=== PATIENT | female | born 1965 | race Caucasian/White ===

== ENCOUNTER 2017-05-13 05:03 | Emergency (ER) | payer MEDICAID, OTHER ==
[~2017-05-13] VITALS: Ht 182.9 cm; Wt 71.8 kg
[~2017-05-13 05:03] MED LIST: ACET325T21 PO; BENZ1TAB61 PO; LITH300C PO; LITH600C PO; OLAN10TA9 PO; TRAZ100T15 PO; ZIPR20VI IM
[2017-05-13 05:05] VITALS: BP 124/84
== END 2017-05-13 06:00 | disposition home or self-care (01) ==
LOC: ED 05:12
DX: S99.912A Unspecified injury of left ankle, initial encounter (principal); S99.911A Unspecified injury of right ankle, initial encounter; X58.XXXA Exposure to other specified factors, initial encounter; Y93.89 Activity, other specified; Y92.89 Other specified places as the place of occurrence of the external cause; Y99.8 Other external cause status
CPT/HCPCS: 99281

== ENCOUNTER 2018-08-26 17:24 | Emergency (ER) | payer OTHER ==
[~2018-08-26] VITALS: Ht 182.9 cm; Wt 90.9 kg
[~2018-08-26 17:24] MED LIST changes: +TRAZ-137 PO; -TRAZ100T15 PO
[2018-08-26 19:02] LABS: CULTURE INDICATED? YES; MICROSCOPIC INDICATED
[2018-08-26 19:04] LABS: BASOPHILS # (AUTO) 0.05 x10^3/uL (0-0.1); BASOPHILS % (AUTO) 1 % (0-1); EOSINOPHILS # (AUTO) 0.11 x10^3/uL (0-0.4); EOSINOPHILS % (AUTO) 1 % (1-7); LYMPHOCYTES # (AUTO) 2.43 x10^3/uL (1-3.4); LYMPHOCYTES % (AUTO) 32 % (22-44); MD NO; MEAN CORPUSCULAR HEMOGLOBIN 34.8 pg (27.0-34.8); MEAN CORPUSCULAR HGB CONC 34.6 g/dL (32.4-35.8); MEAN CORPUSCULAR VOLUME 100.6 fL (80-100); MEAN PLATELET VOLUME 7.8 fL (7.4-10.4); MONOCYTES # (AUTO) 0.42 x10^3/uL (0.2-0.8); MONOCYTES % (AUTO) 6 % (2-9); NEUTROPHILS # (AUTO) 4.52 x10^3/uL (1.8-6.8); NEUTROPHILS % (AUTO) 60 % (42-75); PLATELET COUNT 335 x10^3/uL (130-400); RED BLOOD COUNT 3.37 x10^6/uL (3.82-5.3); RED CELL DISTRIBUTION WIDTH 12.4 % (9.6-15.2)
[2018-08-26 19:13] LABS: ALBUMIN 3.1 g/dL (3.4-5.0); ANION GAP 7 mmol/L (5-15); CALCIUM 8.3 mg/dL (8.5-10.1); CHLORIDE 109 mmol/L (98-107)
[2018-08-26 19:15] LABS: ALANINE AMINOTRANSFERASE 15 U/L (12-78); ALKALINE PHOSPHATASE 86 U/L (45-117); BILIRUBIN,TOTAL 0.3 mg/dL (0.2-1.0); TOTAL PROTEIN 6.4 g/dL (6.4-8.2)
[2018-08-26] MEDS ORDERED: SODIUM CHLORIDE 0.9% 1,000ML IVBOLUS ONE ×2 (19:30→20:30)
[2018-08-26 21:31] LABS: AMPHETAMINE SCREEN, URINE Negative (Negative); BARBITURATE SCREEN, URINE Negative (Negative); BENZODIAZEPINE SCREEN, URINE Negative (Negative); CANNABINOID SCREEN, URINE Negative (Negative); COCAINE SCREEN, URINE Negative (Negative); METHADONE SCREEN, URINE Negative (Negative); OPIATE SCREEN, URINE Positive (Negative)
[2018-08-26 22:09] VITALS: BP 95/56
== END 2018-08-26 23:15 | disposition home or self-care (01) ==
LOC: ED 19:21
DX: S39.012A Strain of muscle, fascia and tendon of lower back, initial encounter (principal); E86.0 Dehydration; X58.XXXA Exposure to other specified factors, initial encounter; Y93.89 Activity, other specified; Y92.89 Other specified places as the place of occurrence of the external cause; Y99.8 Other external cause status
CPT/HCPCS: 36415; 72110; 80053; 80307; 81001; 83605; 85025; 87040; 87086; 99284; J7030

== ENCOUNTER 2018-10-26 20:45 | Observation (INO) | payer MEDICAID ==
[~2018-10-26] VITALS: Ht 185.4 cm; Wt 92.5 kg
--- NOTE | 2018-10-26 21:09 | NUR ---
PT C/O CHEST PAIN AND NOT FEELING WELL X 3 WEEKS. PT SEEN AT [facility]ARLI[facility] TODAY FOR SAME.
[2018-10-26 21:13] LABS: BASOPHILS # (AUTO) 0.09 x10^3/uL (0-0.1); BASOPHILS % (AUTO) 1 % (0-1); EOSINOPHILS # (AUTO) 0.14 x10^3/uL (0-0.4); EOSINOPHILS % (AUTO) 2 % (1-7); LYMPHOCYTES # (AUTO) 2.18 x10^3/uL (1-3.4); LYMPHOCYTES % (AUTO) 32 % (22-44); MD NO; MEAN CORPUSCULAR HEMOGLOBIN 34.5 pg (27.0-34.8); MEAN CORPUSCULAR HGB CONC 34.1 g/dL (32.4-35.8); MEAN CORPUSCULAR VOLUME 101.2 fL (80-100); MEAN PLATELET VOLUME 7.2 fL (7.4-10.4); MONOCYTES # (AUTO) 0.45 x10^3/uL (0.2-0.8); MONOCYTES % (AUTO) 7 % (2-9); NEUTROPHILS # (AUTO) 4.04 x10^3/uL (1.8-6.8); NEUTROPHILS % (AUTO) 59 % (42-75); PLATELET COUNT 353 x10^3/uL (130-400); RED BLOOD COUNT 3.85 x10^6/uL (3.82-5.3); RED CELL DISTRIBUTION WIDTH 14.4 % (9.6-15.2)
[2018-10-26 21:25] LABS: ANION GAP 3 mmol/L (5-15); CALCIUM 7.8 mg/dL (8.5-10.1); CHLORIDE 107 mmol/L (98-107); CREATININE 0.61 mg/dL (0.55-1.02)
[2018-10-26 21:29] LABS: TROPONIN I < 0.015 ng/mL (0.000-0.045)
[2018-10-26] MEDS ORDERED: NITROGLYCERIN SINGLE TAB 0.4 MG SL PRN (21:30)
[2018-10-26] MEDS ORDERED: ASPIRIN 81 MG TABLET CHEW PO ONE (21:30)
[2018-10-26] MEDS ORDERED: ASPIRIN 81 MG TABLET CHEW ONE (21:58)
[2018-10-26] MEDS ORDERED: NITROGLYCERIN SINGLE TAB 0.4 MG SL ONE (21:58)
--- NOTE | 2018-10-26 22:01 | NUR ---
PT CONT C/O CHEST PAIN. PT MEDIATED WITH ONE DOSE OF NITRO SUB LING.
--- NOTE | 2018-10-26 22:23 | NUR ---
PT REFUSING IV AFTER 2 ATTEMPTS.
[2018-10-26] MEDS ORDERED: SODIUM CHLORIDE 0.9% 1,000 ML IV SCH (23:12)
[2018-10-26] MEDS ORDERED: OMNIPAQUE 350 MG/ML, 100ML BOTTLE ONE (23:13)
[2018-10-26] MEDS ORDERED: NITROGLYCERIN 0.4 MG BOTTLE (25 TABS) SL PRN (23:30)
[2018-10-26] MEDS ORDERED: ONDANSETRON ODT 4 MG PO PRN (23:30)
[2018-10-26] MEDS ORDERED: PROMETHAZINE 25 MG/ML, 1ML IM PRN (23:30)
[2018-10-26] MEDS ORDERED: hydrALAzine 20 MG/ML, 1ML IVPush PRN (23:30)
[2018-10-26] MEDS ORDERED: ACETAMINOPHEN 325 MG TABLET PO PRN (23:30)
[2018-10-26] MEDS ORDERED: OXYcodone IR 5MG TABLET PO PRN (23:30)
[2018-10-26] MEDS ORDERED: GABAPENTIN 300 MG CAPSULE PO PRN (23:30)
[2018-10-26] MEDS ORDERED: DOCUSATE 100 MG CAPSULE PO PRN (23:30)
[2018-10-26] MEDS ORDERED: POLYETHYLENE GLYCOL 17 GM PACKET PO PRN (23:30)
[2018-10-26] MEDS ORDERED: LABETALOL 5MG/ML, 20ML IVPush PRN (23:30)
[2018-10-26] MEDS ORDERED: BISACODYL 10 MG SUPP PR PRN (23:30)
[2018-10-26] MEDS ORDERED: morphine SULFATE 10 MG/ML, 1ML IVPush PRN (23:30)
[2018-10-26] MEDS ORDERED: ONDANSETRON 2MG/ML, 2ML IVPush PRN (23:30)
[2018-10-27 00:07] LABS: FREE T4 (FREE THYROXINE) 1.36 ng/dL (0.76-1.46); THYROID STIMULATING HORMONE 0.362 mIU/L (0.358-3.740)
[2018-10-27 00:54] VITALS: BP 101/63
[2018-10-27] MEDS: HEPARIN 5,000 UNITS/ML, 1ML SQ SCH ×4 (00:57→23:53)
[2018-10-27] MEDS: FAMOTIDINE 20 MG/2 ML IVPush SCH ×2 (00:57→07:43)
[2018-10-27] MEDS: NICOTINE 7 MG/24 HR PATCH.TD24 TD SCH ×2 (00:57→23:53)
[2018-10-27] MEDS: ASPIRIN 325 MG TABLET EC PO SCH (05:39)
[2018-10-27 07:58] VITALS: BP 106/67
[2018-10-27] MEDS ORDERED: ERGOCALCIFEROL 50,000 UNIT CAPSULE PO SCH (08:30)
[2018-10-27 09:15] LABS: BASOPHILS # (AUTO) 0.03 x10^3/uL (0-0.1); BASOPHILS % (AUTO) 0 % (0-1); EOSINOPHILS # (AUTO) 0.14 x10^3/uL (0-0.4); EOSINOPHILS % (AUTO) 2 % (1-7); LYMPHOCYTES % (AUTO) 26 % (22-44); MD NO; MEAN CORPUSCULAR HEMOGLOBIN 34.2 pg (27.0-34.8); MEAN CORPUSCULAR HGB CONC 33.1 g/dL (32.4-35.8); MEAN CORPUSCULAR VOLUME 103.3 fL (80-100); MEAN PLATELET VOLUME 7.3 fL (7.4-10.4); MONOCYTES # (AUTO) 0.37 x10^3/uL (0.2-0.8); MONOCYTES % (AUTO) 6 % (2-9); NEUTROPHILS # (AUTO) 4.28 x10^3/uL (1.8-6.8); NEUTROPHILS % (AUTO) 66 % (42-75); PLATELET COUNT 334 x10^3/uL (130-400); RED BLOOD COUNT 3.89 x10^6/uL (3.82-5.3); RED CELL DISTRIBUTION WIDTH 14.3 % (9.6-15.2)
[2018-10-27 09:27] LABS: ALBUMIN 2.7 g/dL (3.4-5.0); ANION GAP 6 mmol/L (5-15); CALCIUM 7.7 mg/dL (8.5-10.1); CHLORIDE 113 mmol/L (98-107)
[2018-10-27 09:32] LABS: ALANINE AMINOTRANSFERASE 12 U/L (12-78); ALKALINE PHOSPHATASE 97 U/L (45-117); BILIRUBIN,TOTAL 0.3 mg/dL (0.2-1.0); CHOL/HDL RATIO 2.3; CHOLESTEROL, TOTAL 150 mg/dL (140-239); CREATININE 0.51 mg/dL (0.55-1.02); HDL CHOL % 43 % (28-40); HDL CHOLESTEROL (DIRECT) 64 mg/dL (40-60); LDL CHOLESTEROL,CALCULATED 76 mg/dL (54-169); LDL/HDL RATIO 1.2 (0.5-3.0); TOTAL PROTEIN 6.1 g/dL (6.4-8.2); TRIGLYCERIDES 50 mg/dL (50-200); TROPONIN I < 0.015 ng/mL (0.000-0.045); VLDL CHOLESTEROL 10 mg/dL (0-25)
[2018-10-27] MEDS ORDERED: REGADENOSON 0.4 MG/5 ML SYRINGE ONE (10:47)
[2018-10-27] MEDS ORDERED: LORazepam 2 MG/ML, 1ML ONE (11:34)
[2018-10-27] MEDS ORDERED: LORazepam 2 MG/ML, 1ML IVPush ONE (12:00)
[2018-10-27 13:50] VITALS: BP 110/72
[2018-10-27] MEDS ORDERED: ACET325T14 PO (14:18)
[2018-10-27] MEDS ORDERED: NICO-485 TD (14:18)
[2018-10-27] MEDS ORDERED: FAMO20TA7 PO (14:18)
[2018-10-27] MEDS ORDERED: ERGO500017 PO (14:18)
[2018-10-27 14:35] VITALS: BP 100/60
[2018-10-27] MEDS: FAMOTIDINE 20 MG TABLET PO SCH ×2 (15:40→22:45)
[2018-10-27] MEDS: SODIUM CHLORIDE 0.9% 1,000 ML IV SCH (15:40)
[2018-10-27 19:01] VITALS: BP 119/71
[2018-10-28] MEDS: SODIUM CHLORIDE 0.9% 1,000 ML IV SCH (01:13)
[2018-10-28 01:22] VITALS: BP 129/81
[2018-10-28] MEDS: ASPIRIN 325 MG TABLET EC PO SCH (05:30)
[2018-10-28] MEDS: HEPARIN 5,000 UNITS/ML, 1ML SQ SCH (07:30)
[2018-10-28 07:38] VITALS: BP 132/78
[2018-10-28 09:26] VITALS: BP 119/69
[2018-10-28] MEDS ORDERED: SODIUM CHLORIDE 0.9% 1,000ML IVBOLUS ONE (09:30)
[2018-10-28] MEDS: FAMOTIDINE 20 MG TABLET PO SCH (09:43)
== END 2018-10-28 13:25 | disposition home or self-care (01) ==
LOC: ED 21:11 → EDIP 22:01 → INTOOBSV 22:01 → UNDOADMOB 22:01 → 5SO 23:19 → EDIP 10-27 00:15 → 5SO 10-27 17:09 → DCLOUNGE 10-28 13:20
PROVIDERS: ADMIT Internal Medicine; ATTEND Internal Medicine
DX: R07.9 Chest pain, unspecified (principal); R00.0 Tachycardia, unspecified; R55 Syncope and collapse; D75.89 Other specified diseases of blood and blood-forming organs; E04.1 Nontoxic single thyroid nodule; E44.0 Moderate protein-calorie malnutrition; E55.9 Vitamin D deficiency, unspecified; E86.0 Dehydration; F10.10 Alcohol abuse, uncomplicated; F17.210 Nicotine dependence, cigarettes, uncomplicated; F20.0 Paranoid schizophrenia; F40.240 Claustrophobia; K44.9 Diaphragmatic hernia without obstruction or gangrene; Z87.11 Personal history of peptic ulcer disease; Z79.899 Other long term (current) drug therapy
CPT/HCPCS: 36415; 71045; 71275; 78452; 80048; 80053; 80061; 82040; 82306; 82607; 83036; 83735; 84439; 84443; 84484; 85025; 85379; 93005; 93017; 93306; 96360; 96361; 99284; A9502; C9898; G0378; J2785; J7030; Q9967

== ENCOUNTER 2018-10-28 20:39 | Emergency (ER) | payer MEDICAID ==
[~2018-10-28] VITALS: Ht 185.4 cm; Wt 91.0 kg
[~2018-10-28 20:39] MED LIST changes: +ACET325T14 PO; +ERGO500017 PO; +FAMO20TA7 PO; +NICO-485 TD
[2018-10-28 21:35] LABS: BASOPHILS # (AUTO) 0.03 x10^3/uL (0-0.1); BASOPHILS % (AUTO) 0 % (0-1); EOSINOPHILS % (AUTO) 1 % (1-7); LYMPHOCYTES % (AUTO) 22 % (22-44); MD NO; MEAN CORPUSCULAR HEMOGLOBIN 34.4 pg (27.0-34.8); MEAN CORPUSCULAR HGB CONC 33.7 g/dL (32.4-35.8); MEAN CORPUSCULAR VOLUME 102.2 fL (80-100); MEAN PLATELET VOLUME 7.3 fL (7.4-10.4); MONOCYTES # (AUTO) 0.43 x10^3/uL (0.2-0.8); MONOCYTES % (AUTO) 5 % (2-9); NEUTROPHILS # (AUTO) 6.28 x10^3/uL (1.8-6.8); NEUTROPHILS % (AUTO) 72 % (42-75); PLATELET COUNT 324 x10^3/uL (130-400); RED BLOOD COUNT 3.91 x10^6/uL (3.82-5.3)
[2018-10-28 21:43] LABS: ALANINE AMINOTRANSFERASE 15 U/L (12-78); ALBUMIN 3.1 g/dL (3.4-5.0); ANION GAP 8 mmol/L (5-15); CHLORIDE 112 mmol/L (98-107); CREATININE 0.62 mg/dL (0.55-1.02)
[2018-10-28 21:46] LABS: ALKALINE PHOSPHATASE 96 U/L (45-117); BILIRUBIN,TOTAL 0.1 mg/dL (0.2-1.0); TOTAL PROTEIN 6.9 g/dL (6.4-8.2)
--- NOTE | 2018-10-28 22:06 | NUR ---
PT REPORT TO SARA CASTAÑEDA. PT CARE TRANSFERRED.
[2018-10-28 22:25] VITALS: BP 114/64
[2018-10-28] MEDS ORDERED: MECLIZINE CHEWABLE 25 MG TAB ONE (22:30)
[2018-10-28] MEDS ORDERED: MECLIZINE CHEWABLE 25 MG TAB PO ONE (22:30)
--- NOTE | 2018-10-28 22:40 | NUR ---
PT MEDICATED FOR DIZZINESS. VSS. PT VERBALIZED UNDERSTANDING OF DISCHARGE AND FOLLOW UP. PT GIVEN CAB VOUCHER
== END 2018-10-28 22:53 | disposition home or self-care (01) ==
LOC: ED 22:18
DX: H61.21 Impacted cerumen, right ear (principal); R42 Dizziness and giddiness; F17.210 Nicotine dependence, cigarettes, uncomplicated; W18.30XA Fall on same level, unspecified, initial encounter; Y93.89 Activity, other specified; Y92.89 Other specified places as the place of occurrence of the external cause; Y99.8 Other external cause status
CPT/HCPCS: 36415; 80053; 85025; 99283

== ENCOUNTER 2018-10-30 08:08 | Emergency (ER) | payer MEDICAID ==
[~2018-10-30] VITALS: Ht 185.4 cm; Wt 99.5 kg
[2018-10-30 08:15] VITALS: BP 93/74
[2018-10-30] MEDS ORDERED: ALBUTEROL/IPRATROPIUM 2.5MG/0.5MG, 3 ML ONE (08:55)
[2018-10-30] MEDS ORDERED: ACETAMINOPHEN 500 MG TABLET ONE (08:58)
[2018-10-30] MEDS ORDERED: ACETAMINOPHEN 500 MG TABLET PO ONE (09:00)
[2018-10-30] MEDS ORDERED: ALBUTEROL/IPRATROPIUM 2.5MG/0.5MG, 3 ML NPPB ONE (09:00)
--- NOTE | 2018-10-30 09:00 | NUR ---
PT REQUESTING TIME TO SLEEP BEFORE WE REQUEST HER TO DC
--- NOTE | 2018-10-30 10:09 | NUR ---
AFTER REPEATED REQUESTES TO CONTINUE TO SLEEP THAT WERE DENIED PT ELOPED WO DC INSTRUCIONS
== END 2018-10-30 10:17 | disposition home or self-care (01) ==
LOC: ED 09:11
DX: J20.8 Acute bronchitis due to other specified organisms (principal)
CPT/HCPCS: 93005; 94640; 99283; J7620

== ENCOUNTER 2018-10-31 23:07 | Emergency (ER) | payer MEDICAID ==
[~2018-10-31] VITALS: Ht 185.4 cm; Wt 95.0 kg
[2018-10-31 23:12] VITALS: BP 108/66
[2018-10-31 23:54] LABS: BASOPHILS # (AUTO) 0.02 x10^3/uL (0-0.1); BASOPHILS % (AUTO) 0 % (0-1); EOSINOPHILS # (AUTO) 0.13 x10^3/uL (0-0.4); EOSINOPHILS % (AUTO) 3 % (1-7); LYMPHOCYTES # (AUTO) 1.63 x10^3/uL (1-3.4); LYMPHOCYTES % (AUTO) 30 % (22-44); MD NO; MEAN CORPUSCULAR HEMOGLOBIN 33.9 pg (27.0-34.8); MEAN CORPUSCULAR VOLUME 102.6 fL (80-100); MEAN PLATELET VOLUME 7.5 fL (7.4-10.4); MONOCYTES # (AUTO) 0.38 x10^3/uL (0.2-0.8); MONOCYTES % (AUTO) 7 % (2-9); NEUTROPHILS % (AUTO) 60 % (42-75); PLATELET COUNT 329 x10^3/uL (130-400); RED BLOOD COUNT 4.05 x10^6/uL (3.82-5.3); RED CELL DISTRIBUTION WIDTH 13.8 % (9.6-15.2)
[2018-11-01 00:01] LABS: ALBUMIN 3.3 g/dL (3.4-5.0); ANION GAP 5 mmol/L (5-15); CALCIUM 7.9 mg/dL (8.5-10.1); CHLORIDE 112 mmol/L (98-107); CREATININE 0.53 mg/dL (0.55-1.02)
[2018-11-01 00:04] LABS: TROPONIN I < 0.015 ng/mL (0.000-0.045)
[2018-11-01] MEDS ORDERED: BENZONATATE 100 MG CAPSULE PO ONE (01:00)
[2018-11-01] MEDS ORDERED: AZITHROMYCIN 500 MG TABLET PO ONE (01:00)
[2018-11-01] MEDS ORDERED: BENZONATATE 100 MG CAPSULE ONE (01:06)
[2018-11-01] MEDS ORDERED: AZITHROMYCIN 250 MG TABLET ONE (01:07)
== END 2018-11-01 01:29 | disposition home or self-care (01) ==
LOC: ED 23:55
DX: J06.9 Acute upper respiratory infection, unspecified (principal); R42 Dizziness and giddiness; F25.9 Schizoaffective disorder, unspecified
CPT/HCPCS: 36415; 80048; 82040; 84484; 85025; 99283

== ENCOUNTER 2018-11-01 03:31 | Emergency (ER) | payer MEDICAID ==
[~2018-11-01] VITALS: Ht 182.9 cm; Wt 96.0 kg
[2018-11-01 03:34] VITALS: BP 110/88
--- NOTE | 2018-11-01 03:53 | NUR ---
PT SEEN BY DR LEIVA AND DISCHARGED
== END 2018-11-01 03:54 | disposition home or self-care (01) ==
LOC: ED 03:52
DX: R00.2 Palpitations (principal); Z72.9 Problem related to lifestyle, unspecified; F25.9 Schizoaffective disorder, unspecified; F17.200 Nicotine dependence, unspecified, uncomplicated
CPT/HCPCS: 93005; 99283

== ENCOUNTER 2018-11-16 23:54 | Emergency (ER) | payer MEDICAID ==
[~2018-11-16] VITALS: Ht 185.4 cm; Wt 97.0 kg
[2018-11-17 00:14] VITALS: BP 92/50
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
--- NOTE | 2018-11-17 00:45 | NUR ---
PT REFUSING CT, NOTIFIED
[2018-11-17 00:47] LABS: BASOPHILS # (AUTO) 0.08 x10^3/uL (0-0.1); BASOPHILS % (AUTO) 1 % (0-1); EOSINOPHILS # (AUTO) 0.11 x10^3/uL (0-0.4); EOSINOPHILS % (AUTO) 1 % (1-7); LYMPHOCYTES # (AUTO) 2.63 x10^3/uL (1-3.4); LYMPHOCYTES % (AUTO) 32 % (22-44); MD NO; MEAN CORPUSCULAR HEMOGLOBIN 34.7 pg (27.0-34.8); MEAN CORPUSCULAR HGB CONC 34.8 g/dL (32.4-35.8); MEAN CORPUSCULAR VOLUME 99.9 fL (80-100); MEAN PLATELET VOLUME 7.5 fL (7.4-10.4); MONOCYTES # (AUTO) 0.43 x10^3/uL (0.2-0.8); MONOCYTES % (AUTO) 5 % (2-9); NEUTROPHILS # (AUTO) 4.99 x10^3/uL (1.8-6.8); NEUTROPHILS % (AUTO) 61 % (42-75); PLATELET COUNT 392 x10^3/uL (130-400); RED BLOOD COUNT 4.24 x10^6/uL (3.82-5.3); RED CELL DISTRIBUTION WIDTH 13.7 % (9.6-15.2)
[2018-11-17 00:57] LABS: ALBUMIN 3.5 g/dL (3.4-5.0); ANION GAP 7 mmol/L (5-15); CALCIUM 8.1 mg/dL (8.5-10.1); CHLORIDE 111 mmol/L (98-107); CREATININE 0.55 mg/dL (0.55-1.02)
--- NOTE | 2018-11-17 01:08 | NUR ---
PT REFUSED WOUND CLEANING. Addendum: 11/17/18 at 0112 by [email or web address] PT REFUSED WOUND CLEANING. RN NOTIFIED.
--- NOTE | 2018-11-17 01:24 | NUR ---
PT ALLOWED ME TO WIPE BLOOD OFF LIP AND APPLY BANDAID
--- NOTE | 2018-11-17 02:29 | NUR ---
Patient/Caregiver given discharge instructions and they have confirmed that they understand the instructions. Patient ambulatory with steady gait.
== END 2018-11-17 02:31 | disposition home or self-care (01) ==
LOC: ED 11-17 00:18
DX: S01.511A Laceration without foreign body of lip, initial encounter (principal); G40.419 Other generalized epilepsy and epileptic syndromes, intractable, without status epilepticus; F10.129 Alcohol abuse with intoxication, unspecified; F32.9 Major depressive disorder, single episode, unspecified; F20.9 Schizophrenia, unspecified; Z90.721 Acquired absence of ovaries, unilateral; Z90.722 Acquired absence of ovaries, bilateral; W19.XXXA Unspecified fall, initial encounter; Y93.89 Activity, other specified; Y92.89 Other specified places as the place of occurrence of the external cause; Y99.8 Other external cause status
CPT/HCPCS: 36415; 80048; 80307; 82040; 85025; 93005; 99284

== ENCOUNTER 2018-12-08 10:14 | Emergency (ER) | payer MEDICAID ==
[~2018-12-08] VITALS: Ht 172.7 cm; Wt 85.0 kg
--- NOTE | 2018-12-08 10:15 | NUR ---
PT IS REFUSING TO COOPERATE WITH HEALTHCARE TEAM. NO CHANGE TO GOWN. REFUSAL OF MED HX, AND WILL JOT VERBALIZE ANY COMPLAINTS.
--- NOTE | 2018-12-08 10:23 | NUR ---
MD IS AT THE BEDSIDE TO ASSESS.
[2018-12-08] MEDS ORDERED: LORazepam 1MG TABLET ONE (10:37)
[2018-12-08] MEDS ORDERED: LORazepam 1MG TABLET PO ONE (11:00)
[2018-12-08 11:23] VITALS: BP 147/82
== END 2018-12-08 11:25 | disposition home or self-care (01) ==
LOC: ED 10:57
DX: F25.9 Schizoaffective disorder, unspecified (principal); R21 Rash and other nonspecific skin eruption; F32.9 Major depressive disorder, single episode, unspecified; Z90.721 Acquired absence of ovaries, unilateral
CPT/HCPCS: 99283

== ENCOUNTER 2018-12-09 10:39 | Emergency (ER) | payer MEDICAID ==
[~2018-12-09] VITALS: Ht 172.7 cm; Wt 80.0 kg
[2018-12-09 10:51] VITALS: BP 122/73
--- NOTE | 2018-12-09 10:55 | NUR ---
PT PRESENTED TO ED D/T UNABLE TO AMBULATE. PT PRESENTED WITH A FLIGHT OF IDEAS.
--- NOTE | 2018-12-09 11:32 | NUR ---
OKAY BY RAUL TO DC PT. PT AMBULATED OUT OF ED WITH A STEADY GAIT.
== END 2018-12-09 11:33 | disposition home or self-care (01) ==
LOC: ED 11:27
DX: F20.1 Disorganized schizophrenia (principal); Z00.00 Encounter for general adult medical examination without abnormal findings; F32.9 Major depressive disorder, single episode, unspecified; Z90.722 Acquired absence of ovaries, bilateral
CPT/HCPCS: 99283

== ENCOUNTER 2018-12-10 18:16 | Emergency (ER) | payer MEDICAID ==
[~2018-12-10] VITALS: Ht 182.9 cm; Wt 97.8 kg
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
--- NOTE | 2018-12-10 18:34 | NUR ---
RECEIVED REPORT FROM SARA COONEY. PT REFUSING TO GIVE UA SAMPLE. PT RESTING ON GURNEY. NADN. SITTER AT BEDSIDE. ROOM REMAINS SECURE.
[2018-12-10] MEDS ORDERED: LORazepam 2 MG/ML, 1ML IM ONE (19:00)
--- NOTE | 2018-12-10 19:06 | NUR ---
REPORT RECEIVED FROM DAYSI RUIZ.
--- NOTE | 2018-12-10 19:06 | NUR ---
REPORT GIVEN TO REINALDO PARRY RN.
[2018-12-10 19:11] LABS: BASOPHILS # (AUTO) 0.04 x10^3/uL (0-0.1); BASOPHILS % (AUTO) 1 % (0-1); EOSINOPHILS # (AUTO) 0.09 x10^3/uL (0-0.4); EOSINOPHILS % (AUTO) 1 % (1-7); LYMPHOCYTES # (AUTO) 2.07 x10^3/uL (1-3.4); LYMPHOCYTES % (AUTO) 29 % (22-44); MD NO; MEAN CORPUSCULAR HEMOGLOBIN 33.8 pg (27.0-34.8); MEAN CORPUSCULAR HGB CONC 34.6 g/dL (32.4-35.8); MEAN CORPUSCULAR VOLUME 97.8 fL (80-100); MEAN PLATELET VOLUME 7.9 fL (7.4-10.4); MONOCYTES # (AUTO) 0.37 x10^3/uL (0.2-0.8); MONOCYTES % (AUTO) 5 % (2-9); NEUTROPHILS # (AUTO) 4.71 x10^3/uL (1.8-6.8); NEUTROPHILS % (AUTO) 65 % (42-75); PLATELET COUNT 381 x10^3/uL (130-400); RED BLOOD COUNT 4.34 x10^6/uL (3.82-5.3); RED CELL DISTRIBUTION WIDTH 13.1 % (9.6-15.2)
[2018-12-10 19:17] LABS: ALANINE AMINOTRANSFERASE 24 U/L (12-78); ALBUMIN 3.3 g/dL (3.4-5.0); ANION GAP 9 mmol/L (5-15); CALCIUM 8.7 mg/dL (8.5-10.1); CHLORIDE 108 mmol/L (98-107); CREATININE 0.51 mg/dL (0.55-1.02); SALICYLATE LEVEL 2.9 mg/dL (2.8-20.0)
[2018-12-10 19:21] LABS: ALKALINE PHOSPHATASE 109 U/L (45-117); BILIRUBIN,TOTAL 0.4 mg/dL (0.2-1.0); TOTAL PROTEIN 6.8 g/dL (6.4-8.2)
[2018-12-10 19:22] LABS: ACETAMINOPHEN < 2 mcg/mL (10-30)
[2018-12-10] MEDS ORDERED: LORazepam 2 MG/ML, 1ML ONE (20:14)
--- NOTE | 2018-12-10 20:23 | NUR ---
PT MEDICATED PER EMAR. PT TOLERTAED WELL.
--- NOTE | 2018-12-10 20:23 | NUR ---
PT PROVIDED DINNER. PT EATING DINNER AT THIS TIME. SITTER MONITORING FROM [facility] FOR SAFETY. ROOM REMAINS SECURE.
[2018-12-10] MEDS ORDERED: MAGNESIUM OXIDE 400 MG TABLET PO ONE (20:30)
[2018-12-10] MEDS ORDERED: POTASSIUM CHLORIDE 20 MEQ TAB.ER.PRT PO ONE (20:30)
[2018-12-10] MEDS ORDERED: MAGNESIUM OXIDE 400 MG TABLET ONE (20:31)
[2018-12-10] MEDS ORDERED: POTASSIUM CHLORIDE 20 MEQ TAB.ER.PRT ONE (20:31)
--- NOTE | 2018-12-10 20:40 | NUR ---
PT PROVIDED URINE SAMPLE. UA SENT.
[2018-12-10 20:46] LABS: CULTURE INDICATED? YES; MICROSCOPIC INDICATED
[2018-12-10 20:50] LABS: AMPHETAMINE SCREEN, URINE Negative (Negative); BARBITURATE SCREEN, URINE Negative (Negative); BENZODIAZEPINE SCREEN, URINE Negative (Negative); CANNABINOID SCREEN, URINE Negative (Negative); COCAINE SCREEN, URINE Negative (Negative); METHADONE SCREEN, URINE Negative (Negative); OPIATE SCREEN, URINE Negative (Negative)
--- NOTE | 2018-12-10 20:55 | NUR ---
PT MEDICATED PER EMAR. PT TOLERATED WELL.
[2018-12-10] MEDS ORDERED: CEFDINIR 300 MG CAPSULE ONE (21:28)
[2018-12-10] MEDS ORDERED: CEFDINIR 300 MG CAPSULE PO ONE (21:30)
--- NOTE | 2018-12-10 21:35 | NUR ---
PT MEDICATED PER EMAR. PT TOLERATED WELL. ROOM REMAINS SECURE.
[2018-12-10 21:36] VITALS: BP 96/59
--- NOTE | 2018-12-10 21:55 | NUR ---
PT GIVEN DC INSTRUCTIONS AND SCRIPT. PT EDUCATED REGARDING DC MEDICATION. PT WHEELED TO DC. PT'S AOX4. RESPS EVEN AND UNLABORED. NO ACUTE DISTRESS AT DC.
== END 2018-12-10 22:11 | disposition home or self-care (01) ==
LOC: ED 21:28
DX: F25.9 Schizoaffective disorder, unspecified (principal); E87.6 Hypokalemia; N30.00 Acute cystitis without hematuria; E83.42 Hypomagnesemia; F32.9 Major depressive disorder, single episode, unspecified; Z72.9 Problem related to lifestyle, unspecified
CPT/HCPCS: 36415; 80053; 80307; 80329; 81001; 83735; 85025; 87077; 87086; 87186; 96372; 99284; J2060; G0480

== ENCOUNTER 2018-12-11 13:10 | Inpatient (IN) | payer MEDICAID ==
[~2018-12-11] VITALS: Ht 172.7 cm; Wt 90.8 kg
[2018-12-11 13:59] LABS: BASOPHILS # (AUTO) 0.03 x10^3/uL (0-0.1); BASOPHILS % (AUTO) 0 % (0-1); EOSINOPHILS # (AUTO) 0.04 x10^3/uL (0-0.4); EOSINOPHILS % (AUTO) 0 % (1-7); LYMPHOCYTES # (AUTO) 1.94 x10^3/uL (1-3.4); LYMPHOCYTES % (AUTO) 23 % (22-44); MD NO; MEAN CORPUSCULAR HEMOGLOBIN 33.7 pg (27.0-34.8); MEAN CORPUSCULAR HGB CONC 34.4 g/dL (32.4-35.8); MEAN PLATELET VOLUME 8.1 fL (7.4-10.4); MONOCYTES # (AUTO) 0.37 x10^3/uL (0.2-0.8); MONOCYTES % (AUTO) 4 % (2-9); NEUTROPHILS # (AUTO) 6.12 x10^3/uL (1.8-6.8); NEUTROPHILS % (AUTO) 72 % (42-75); PLATELET COUNT 401 x10^3/uL (130-400); RED BLOOD COUNT 4.33 x10^6/uL (3.82-5.3); RED CELL DISTRIBUTION WIDTH 13.2 % (9.6-15.2)
[2018-12-11 14:09] LABS: ALBUMIN 3.6 g/dL (3.4-5.0); ANION GAP 9 mmol/L (5-15); CALCIUM 8.9 mg/dL (8.5-10.1); CHLORIDE 110 mmol/L (98-107); CREATININE 0.53 mg/dL (0.55-1.02)
[2018-12-11 14:10] LABS: ACETAMINOPHEN < 2 mcg/mL (10-30); SALICYLATE LEVEL 3.2 mg/dL (2.8-20.0)
--- NOTE | 2018-12-11 14:55 | NUR ---
PT REFUSING TO CHANGE INTO GOWN, ROOM SECURED. SITTER MONITORING FROM [facility] FOR SAFETY
--- NOTE | 2018-12-11 15:11 | NUR ---
PT NOW IN GOWN. ROOM SECURED. DISCUSSED POC WITH PT BUT REQUIRES REINFORCEMENT.
--- NOTE | 2018-12-11 15:31 | NUR ---
[facility] TO EVALUATE
--- NOTE | 2018-12-11 15:49 | NUR ---
[facility] TO BEDSIDE. ASSESSMENT IN PROGRESS
--- NOTE | 2018-12-11 16:27 | NUR ---
PT RECEIVED MEAL TRAY. NO ACUTE DISTRESS. PT LEGAL HOLD IN PLACE BY ANGELINA FROM [facility]. PT WITHDRAWN AND UNCOOPERATIVE, DOES NOT RESPOND WELL TO REASSURANCE
--- NOTE | 2018-12-11 16:29 | NUR ---
PT DENIES ABILITY TO PRODUCE UA AT THIS TIME
--- NOTE | 2018-12-11 17:04 | NUR ---
[facility], [facility] AND [facility]
--- NOTE | 2018-12-11 17:26 | NUR ---
PT MOVED TO HOSPITAL BED. ALL PERSONAL CLOTHING NOW REMOVED AND SECURED. PT IN HOSPITAL GOWN AND BED BATH PROVIDED. PT DENIES FURTHER NEEDS AT THIS TIME. SITTER MONITORING FROM [facility] FOR SAFETY. PT DENIES ABILITY TO PRODUCE UA AT THIS TIME
--- NOTE | 2018-12-11 18:00 | NUR ---
CESAR FROM [facility] CALLED. THEY ARE LOOKING AT ACCEPTING PT BUT CONCERNED ABOUT ELEVATED HR. ANTONY AWARE AND HAS SPOKEN TO DR. OCHOA.
--- NOTE | 2018-12-11 18:29 | NUR ---
SPOKE WITH GENE FROM [facility]. IF [facility] DOES NOT ACCEPT [facility] WILL EVALUATE. HR WILL ASLO BE A CONCERN WITH THEM
[2018-12-11] MEDS ORDERED: SODIUM CHLORIDE FLUSH 10ML SYR IVF ONE (18:30)
[2018-12-11] MEDS ORDERED: SODIUM CHLORIDE 0.9% 1,000ML IVBOLUS ONE ×2 (18:30→20:30)
[2018-12-11 18:38] LABS: FREE T4 (FREE THYROXINE) 1.61 ng/dL (0.76-1.46); THYROID STIMULATING HORMONE 0.934 mIU/L (0.358-3.740)
--- NOTE | 2018-12-11 18:44 | NUR ---
CALL PLACED TO CESAR AT [facility] [phone]. AWAITING RETURN CALL
[2018-12-11] MEDS ORDERED: LORazepam 2 MG/ML, 1ML ONE (18:59)
[2018-12-11] MEDS ORDERED: LORazepam 2 MG/ML, 1ML IVPush PRN (19:00)
--- NOTE | 2018-12-11 19:12 | NUR ---
ASSUMED CARE OF PATIENT. PATIENT REQUESTING FOOD. PT GIVEN DINNER. PT IS ANXIOUS. SPOKE WITH SARA GUERRERO AT [facility]. PT IS ACCEPTED. WILLCALL BACK ONCE PATIENT HAS EATEN AND IS FEELING MORE CALM. SITTER AT DOOR. WILL CONTINUE TO MONITOR.
--- NOTE | 2018-12-11 19:44 | NUR ---
PT REQUESTING MORE FOOD. PT GIVEN FOOD
--- NOTE | 2018-12-11 19:48 | NUR ---
DR OCHOA AWARE OF VS SITTER AT DOOR PT CALM WILL CONTINUE TO MONITOR.
[2018-12-11] MEDS ORDERED: HALOPERIDOL 5 MG/ML IM ONE (21:00)
[2018-12-11] MEDS ORDERED: HALOPERIDOL 5 MG/ML ONE (21:10)
[2018-12-11] MEDS ORDERED: CEFTRIAXONE PMX 1GM/50ML 50 ML IVPB ONE (21:30)
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
[2018-12-11 21:43] LABS: MICROSCOPIC INDICATED
[2018-12-11 21:44] LABS: CULTURE INDICATED? YES
--- NOTE | 2018-12-11 21:44 | NUR ---
SPOKE WITH DR OCHOA NO BLOOD CULTURES NEEDED
[2018-12-11] MEDS ORDERED: CEFTRIAXONE PMX 1GM/50ML 50 ML ONE (21:45)
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
[2018-12-11 22:04] LABS: AMPHETAMINE SCREEN, URINE Negative (Negative); BARBITURATE SCREEN, URINE Negative (Negative); BENZODIAZEPINE SCREEN, URINE Negative (Negative); CANNABINOID SCREEN, URINE Negative (Negative); COCAINE SCREEN, URINE Negative (Negative); METHADONE SCREEN, URINE Negative (Negative); OPIATE SCREEN, URINE Negative (Negative)
[2018-12-11] MEDS ORDERED: SODIUM CHLORIDE FLUSH 10ML SYR IVF PRN (22:30)
[2018-12-11] MEDS ORDERED: ACETAMINOPHEN 325 MG TABLET PO PRN (23:00)
[2018-12-11] MEDS ORDERED: BISACODYL 10 MG SUPP PR PRN (23:00)
[2018-12-11] MEDS ORDERED: CEFTRIAXONE PMX 1GM/50ML 50 ML IV SCH (23:00)
[2018-12-11] MEDS ORDERED: POLYETHYLENE GLYCOL 17 GM PACKET PO PRN (23:00)
[2018-12-11] MEDS ORDERED: ONDANSETRON ODT 4 MG PO PRN (23:00)
[2018-12-11] MEDS: NS + 20MEQ KCL 1,000 ML IV SCH (23:54)
[2018-12-11] MEDS: HEPARIN 5,000 UNITS/ML, 1ML SQ SCH (23:56)
[2018-12-12 00:22] VITALS: BP 86/54
[2018-12-12 05:04] LABS: BASOPHILS # (AUTO) 0.04 x10^3/uL (0-0.1); BASOPHILS % (AUTO) 1 % (0-1); EOSINOPHILS # (AUTO) 0.12 x10^3/uL (0-0.4); EOSINOPHILS % (AUTO) 2 % (1-7); LYMPHOCYTES # (AUTO) 2.55 x10^3/uL (1-3.4); LYMPHOCYTES % (AUTO) 42 % (22-44); MD NO; MEAN CORPUSCULAR HEMOGLOBIN 33.6 pg (27.0-34.8); MEAN CORPUSCULAR HGB CONC 34.2 g/dL (32.4-35.8); MEAN CORPUSCULAR VOLUME 98.3 fL (80-100); MEAN PLATELET VOLUME 7.9 fL (7.4-10.4); MONOCYTES # (AUTO) 0.41 x10^3/uL (0.2-0.8); MONOCYTES % (AUTO) 7 % (2-9); NEUTROPHILS # (AUTO) 2.98 x10^3/uL (1.8-6.8); NEUTROPHILS % (AUTO) 49 % (42-75); PLATELET COUNT 334 x10^3/uL (130-400); RED BLOOD COUNT 3.78 x10^6/uL (3.82-5.3); RED CELL DISTRIBUTION WIDTH 13.3 % (9.6-15.2)
[2018-12-12 05:09] LABS: ALANINE AMINOTRANSFERASE 22 U/L (12-78); ALBUMIN 2.8 g/dL (3.4-5.0); ANION GAP 2 mmol/L (5-15); CALCIUM 7.7 mg/dL (8.5-10.1); CHLORIDE 115 mmol/L (98-107)
[2018-12-12 05:12] LABS: ALKALINE PHOSPHATASE 94 U/L (45-117); BILIRUBIN,TOTAL 0.2 mg/dL (0.2-1.0); CREATININE 0.56 mg/dL (0.55-1.02); TOTAL PROTEIN 5.8 g/dL (6.4-8.2)
[2018-12-12] MEDS: HEPARIN 5,000 UNITS/ML, 1ML SQ SCH ×3 (07:00→23:15)
[2018-12-12] MEDS: SENNA/DOCUSATE TABLET PO SCH (08:35)
[2018-12-12] MEDS: NS + 20MEQ KCL 1,000 ML IV SCH (08:35)
[2018-12-12] MEDS: ERTAPENEM 1 GM in SODIUM CHLORIDE 0.9% 50 ML IV SCH (15:41)
[2018-12-13 07:59] VITALS: BP 107/70
[2018-12-13] MEDS: SENNA/DOCUSATE TABLET PO SCH (09:06)
[2018-12-13] MEDS: HEPARIN 5,000 UNITS/ML, 1ML SQ SCH ×3 (09:06→23:00)
[2018-12-13] MEDS ORDERED: LORazepam 2 MG/ML, 1ML IVPush ONE (12:00)
[2018-12-13] MEDS: ERTAPENEM 1 GM in SODIUM CHLORIDE 0.9% 50 ML IV SCH (14:39)
[2018-12-13 15:08] VITALS: BP 123/86
[2018-12-13] MEDS ORDERED: OLANZAPINE 10 MG INJ IM PRN (16:30)
[2018-12-13] MEDS: OLANZAPINE 5 MG TABLET PO SCH ×2 (17:12→20:14)
[2018-12-13] MEDS: LORazepam 2 MG/ML, 1ML IVPush PRN (17:12)
[2018-12-13 19:23] VITALS: BP 120/72
[2018-12-14 01:53] VITALS: BP 110/71
[2018-12-14] MEDS: HEPARIN 5,000 UNITS/ML, 1ML SQ SCH (06:28)
[2018-12-14] MEDS: SENNA/DOCUSATE TABLET PO SCH (08:39)
[2018-12-14] MEDS: OLANZAPINE 5 MG TABLET PO SCH ×2 (08:39→22:05)
[2018-12-14] MEDS: LORazepam 2 MG/ML, 1ML IVPush PRN ×2 (08:56→18:09)
[2018-12-14 12:09] VITALS: BP 107/71
[2018-12-14] MEDS: ERTAPENEM 1 GM in SODIUM CHLORIDE 0.9% 50 ML IV SCH (15:31)
[2018-12-14 19:42] VITALS: BP 128/79
[2018-12-15] MEDS: LORazepam 2 MG/ML, 1ML IVPush PRN ×2 (05:15→15:30)
[2018-12-15 08:09] VITALS: BP 104/71
[2018-12-15] MEDS: SENNA/DOCUSATE TABLET PO SCH (09:00)
[2018-12-15] MEDS: OLANZAPINE 5 MG TABLET PO SCH ×2 (09:35→21:41)
[2018-12-15 14:00] VITALS: BP 122/86
[2018-12-15] MEDS ORDERED: OLANZAPINE 10 MG INJ IM PRN (15:30)
[2018-12-15] MEDS: ERTAPENEM 1 GM in SODIUM CHLORIDE 0.9% 50 ML IV SCH (15:30)
[2018-12-16] MEDS: OLANZAPINE 5 MG TABLET PO SCH ×2 (09:00→20:03)
[2018-12-16] MEDS: SENNA/DOCUSATE TABLET PO SCH (09:00)
[2018-12-16] MEDS: ERTAPENEM 1 GM in SODIUM CHLORIDE 0.9% 50 ML IV SCH (15:46)
[2018-12-17] MEDS: SENNA/DOCUSATE TABLET PO SCH (09:00)
[2018-12-17 09:54] VITALS: BP 116/78
[2018-12-17] MEDS: OLANZAPINE 5 MG TABLET PO SCH ×3 (11:28→22:35)
[2018-12-17] MEDS: LORazepam 2 MG/ML, 1ML IVPush PRN (14:26)
[2018-12-17] MEDS: ERTAPENEM 1 GM in SODIUM CHLORIDE 0.9% 50 ML IV SCH (14:26)
[2018-12-17 14:42] VITALS: BP 121/87
[2018-12-18] MEDS: SENNA/DOCUSATE TABLET PO SCH (09:00)
[2018-12-18] MEDS: OLANZAPINE 5 MG TABLET PO SCH ×3 (09:37→21:16)
[2018-12-18] MEDS: LORazepam 2 MG/ML, 1ML IVPush PRN (09:42)
[2018-12-18] MEDS: ERTAPENEM 1 GM in SODIUM CHLORIDE 0.9% 50 ML IV SCH (15:32)
[2018-12-18 19:42] VITALS: BP 117/71
[2018-12-19] MEDS: OLANZAPINE 5 MG TABLET PO SCH ×3 (09:00→20:03)
[2018-12-19] MEDS: SENNA/DOCUSATE TABLET PO SCH (09:00)
[2018-12-19] MEDS: LORazepam 2 MG/ML, 1ML IVPush PRN (16:01)
[2018-12-19] MEDS: ERTAPENEM 1 GM in SODIUM CHLORIDE 0.9% 50 ML IV SCH (16:03)
[2018-12-20] MEDS: OLANZAPINE 5 MG TABLET PO SCH ×3 (07:53→17:31)
[2018-12-20] MEDS: SENNA/DOCUSATE TABLET PO SCH (07:53)
[2018-12-20 09:31] VITALS: BP 108/75
[2018-12-20] MEDS: LORazepam 2 MG/ML, 1ML IVPush PRN (09:44)
[2018-12-20] MEDS: ERTAPENEM 1 GM in SODIUM CHLORIDE 0.9% 50 ML IV SCH (15:57)
[2018-12-20 19:25] VITALS: BP 119/64
[2018-12-21 06:53] VITALS: BP 101/58
[2018-12-21] MEDS: OLANZAPINE 5 MG TABLET PO SCH ×3 (07:37→20:36)
[2018-12-21] MEDS: LORazepam 2 MG/ML, 1ML IVPush PRN ×2 (07:43→16:47)
[2018-12-21] MEDS: SENNA/DOCUSATE TABLET PO SCH (09:00)
[2018-12-21 12:33] VITALS: BP 119/78
[2018-12-21] MEDS ORDERED: OLANZAPINE 10 MG INJ IM ONE (15:30)
[2018-12-21 20:23] VITALS: BP 117/68
[2018-12-22] MEDS: SENNA/DOCUSATE TABLET PO SCH (08:21)
[2018-12-22] MEDS: OLANZAPINE 5 MG TABLET PO SCH ×3 (08:21→20:38)
[2018-12-22] MEDS: LORazepam 2 MG/ML, 1ML IVPush PRN ×2 (09:43→16:44)
== END 2018-12-22 22:00 | DRG 189 ==
LOC: ED 13:25 → EDIP 22:16 → 4WST 23:28 → 3NE 12-15 05:43
PROVIDERS: ADMIT Internal Medicine; ATTEND Internal Medicine
PROC: 0T9B70Z Drainage of Bladder with Drainage Device, Via Natural or Artificial Opening (ICD-10-PCS; principal; 2018-12-11)
DX: J96.00 Acute respiratory failure, unspecified whether with hypoxia or hypercapnia (principal); E44.0 Moderate protein-calorie malnutrition; F20.1 Disorganized schizophrenia; N30.00 Acute cystitis without hematuria; D69.6 Thrombocytopenia, unspecified; Z16.12 Extended spectrum beta lactamase (ESBL) resistance; E87.6 Hypokalemia; Z87.11 Personal history of peptic ulcer disease; Z91.14 Patient's other noncompliance with medication regimen; Z68.30 Body mass index [BMI] 30.0-30.9, adult
CPT/HCPCS: 36415; 80048; 80053; 80307; 80329; 81001; 82040; 83735; 84439; 84443; 85025; 87077; 87086; 87184; 87186; 96361; 96365; 96372; 96375; G0378; J0696; J1335; J3480; G0480; J1630; J2060; J7030

== ENCOUNTER 2019-02-15 09:32 | Emergency (ER) | payer MEDICAID ==
[~2019-02-15] VITALS: Ht 182.9 cm; Wt 93.9 kg
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
[2019-02-15 10:05] LABS: BASOPHILS % (AUTO) 0 % (0-1); EOSINOPHILS # (AUTO) 0.04 x10^3/uL (0-0.4); EOSINOPHILS % (AUTO) 1 % (1-7); LYMPHOCYTES # (AUTO) 0.99 x10^3/uL (1-3.4); LYMPHOCYTES % (AUTO) 10 % (22-44); MD NO; MEAN CORPUSCULAR HEMOGLOBIN 33.2 pg (27.0-34.8); MEAN CORPUSCULAR HGB CONC 33.3 g/dL (32.4-35.8); MEAN CORPUSCULAR VOLUME 99.5 fL (80-100); MEAN PLATELET VOLUME 6.7 fL (7.4-10.4); MONOCYTES # (AUTO) 0.23 x10^3/uL (0.2-0.8); MONOCYTES % (AUTO) 2 % (2-9); NEUTROPHILS # (AUTO) 8.29 x10^3/uL (1.8-6.8); NEUTROPHILS % (AUTO) 87 % (42-75); PLATELET COUNT 341 x10^3/uL (130-400); RED CELL DISTRIBUTION WIDTH 14.5 % (9.6-15.2)
[2019-02-15 10:29] LABS: ALANINE AMINOTRANSFERASE 20 U/L (12-78); ALBUMIN 3.5 g/dL (3.4-5.0); ANION GAP 11 mmol/L (5-15); CALCIUM 8.4 mg/dL (8.5-10.1); CHLORIDE 107 mmol/L (98-107); SALICYLATE LEVEL 5.4 mg/dL (2.8-20.0)
[2019-02-15 10:31] LABS: ALKALINE PHOSPHATASE 141 U/L (45-117); BILIRUBIN,TOTAL 0.8 mg/dL (0.2-1.0); CREATININE 0.38 mg/dL (0.55-1.02); TOTAL PROTEIN 7.5 g/dL (6.4-8.2)
--- NOTE | 2019-02-15 11:22 | NUR ---
PT TRANSFERED TO PELVIC GURNEY. ROOM PREPPED FOR EXAM.
--- NOTE | 2019-02-15 12:24 | NUR ---
PT RESTING IN BED, NAD. NO NEEDS AT THIS TIME. WILL CONTINUE TO MONITOR
--- NOTE | 2019-02-15 12:27 | NUR ---
LATE ENTRY 1135- PT REFUSED INTERNAL PELVIC EXAM
[2019-02-15 12:45] LABS: AMPHETAMINE SCREEN, URINE Positive (Negative); BARBITURATE SCREEN, URINE Negative (Negative); BENZODIAZEPINE SCREEN, URINE Negative (Negative); CANNABINOID SCREEN, URINE Negative (Negative); COCAINE SCREEN, URINE Negative (Negative); METHADONE SCREEN, URINE Negative (Negative); OPIATE SCREEN, URINE Negative (Negative)
--- NOTE | 2019-02-15 13:39 | NUR ---
PT RESTING ON BILLY WHEAT NOTED. VSS
[2019-02-15 14:15] LABS: MICROSCOPIC INDICATED
[2019-02-15 14:16] LABS: CULTURE INDICATED? YES
--- NOTE | 2019-02-15 14:24 | NUR ---
TECH AMBULATED PATIENT; PT STATED "I DON'T FEEL WELL I CANT WALK," WHILE AMBULATING WITH STEADY GAIT.
[2019-02-15] MEDS ORDERED: FOSFOMYCIN 3 GM PACKET PO ONE (14:30)
[2019-02-15 15:26] VITALS: BP 110/71
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
== END 2019-02-15 16:23 | disposition home or self-care (01) ==
LOC: ED 11:28
DX: F25.8 Other schizoaffective disorders (principal); F15.151 Other stimulant abuse with stimulant-induced psychotic disorder with hallucinations; R00.0 Tachycardia, unspecified; F17.200 Nicotine dependence, unspecified, uncomplicated
CPT/HCPCS: 36415; 80053; 80307; 81001; 85025; 87077; 87086; 87186; 99284

== ENCOUNTER 2019-02-24 17:18 | Emergency (ER) | payer MEDICAID ==
--- NOTE | 2019-02-24 17:37 | NUR ---
PT REFUSING PHYSICAL ASSESSMENT AT THIS TIME. PT PLACED IN BED, VITALS OBTAINED. SITTER AT DOOR, SAFETY ENSURED. PT ON LEGAL HOLD. SW ADVISED OF HOLD STATUS. PT SLEEPING IN BED. INCOMPREHENSIBLY SPEAKING WHEN ADDRESSED. PT APPEARS ANGER AT THIS TIME. WILL CONTINUE TO MONITOR.
--- NOTE | 2019-02-24 17:40 | NUR ---
PT OFFERED SHOWER AND ADAMANTLY REFUSING. PT YELLED TO "LEAVE ME ALONE"
[2019-02-24 18:07] LABS: BASOPHILS # (AUTO) 0.04 x10^3/uL (0-0.1); BASOPHILS % (AUTO) 1 % (0-1); EOSINOPHILS # (AUTO) 0.06 x10^3/uL (0-0.4); EOSINOPHILS % (AUTO) 1 % (1-7); LYMPHOCYTES % (AUTO) 29 % (22-44); MD NO; MEAN CORPUSCULAR HEMOGLOBIN 33.8 pg (27.0-34.8); MEAN CORPUSCULAR HGB CONC 32.9 g/dL (32.4-35.8); MEAN CORPUSCULAR VOLUME 102.8 fL (80-100); MONOCYTES % (AUTO) 6 % (2-9); NEUTROPHILS # (AUTO) 5.96 x10^3/uL (1.8-6.8); NEUTROPHILS % (AUTO) 64 % (42-75); PLATELET COUNT 397 x10^3/uL (130-400); RED BLOOD COUNT 3.87 x10^6/uL (3.82-5.3)
--- NOTE | 2019-02-24 18:07 | NUR ---
REPORT FROM ADRIENNE RUIZ, PT MOVED TO ROOM 38.
[2019-02-24 18:14] LABS: ALBUMIN 2.9 g/dL (3.4-5.0); ANION GAP 10 mmol/L (5-15); CALCIUM 8.2 mg/dL (8.5-10.1); CHLORIDE 103 mmol/L (98-107)
[2019-02-24 18:17] LABS: ALANINE AMINOTRANSFERASE 29 U/L (12-78); ALKALINE PHOSPHATASE 110 U/L (45-117); BILIRUBIN,TOTAL 0.5 mg/dL (0.2-1.0); CREATININE 0.54 mg/dL (0.55-1.02); TOTAL PROTEIN 6.5 g/dL (6.4-8.2)
--- NOTE | 2019-02-24 19:28 | NUR ---
PT MAKING DEMANDS FOR FOOD AND TO HAVE DOOR OPEN. SANDWICH OFFERED ONCE URINE SPECIMEN OBTAINED. PT URINATED ON FLOOR, BOUNDARIES REINFORCED, BSC PLACED IN ROOM D/T LARGE AMOUNT OF FECAL MATTER ON PT AND PT REFUSING SHOWER OR TO BE CLEANED UP. PT ABLE TO PROVIDE SPECIMEN/SENT TO LAB. TURKEY SANDWICH PROVIDED PER PT REQUEST AND DOOR CLOSED. SITTER AT HALLWAY.
--- NOTE | 2019-02-24 19:31 | NUR ---
[facility] called for assessment
--- NOTE | 2019-02-24 19:37 | NUR ---
Cheryl from [facility] called for initial assessment.
[2019-02-24 19:56] LABS: AMPHETAMINE SCREEN, URINE Negative (Negative); BARBITURATE SCREEN, URINE Negative (Negative); BENZODIAZEPINE SCREEN, URINE Negative (Negative); CANNABINOID SCREEN, URINE Negative (Negative); COCAINE SCREEN, URINE Negative (Negative); METHADONE SCREEN, URINE Negative (Negative); OPIATE SCREEN, URINE Negative (Negative)
--- NOTE | 2019-02-24 20:25 | NUR ---
PT APPEARS TO BE SLEEPING, EVEN RISE/FALL OF CHEST. SITTER AT DOORWAY.
--- NOTE | 2019-02-24 20:27 | NUR ---
documents sent to [facility] as requested.
[2019-02-24] MEDS ORDERED: ZIPRASIDONE 20 MG INJ IM ONE (20:30)
--- NOTE | 2019-02-24 21:34 | NUR ---
BREATHALYZER 0.121. SITTER AT DOORWAY, CONTINUE CLOSE OBS.
--- NOTE | 2019-02-24 22:25 | NUR ---
VS CHECKED, STABLE AND UPDATED IN COMPUTER. PT BACK TO SLEEP. SITTER IN LARA.
--- NOTE | 2019-02-25 00:02 | NUR ---
REPORT TO MADDY RUIZ, TRANSFER OF CARE AT THIS TIME.
--- NOTE | 2019-02-25 00:05 | NUR ---
PT SLEEPING. PT HAS NO NEEDS AT THIS TIME. SITTER IN VIEW OF PT.
--- NOTE | 2019-02-25 01:38 | NUR ---
PT SLEEPING. EVEN RISE AND FALL OF CHEST OBSERVED. PT HAS NO NEEDS AT THIS TIME. SITTER IN VIEW OF PT
--- NOTE | 2019-02-25 03:00 | NUR ---
PT SLEEPING. PT HAS NO NEEDS AT THIS TIME. SITTER IN VIEW OF PT.
--- NOTE | 2019-02-25 03:54 | NUR ---
PT SLEEPING. PT HAS NO NEEDS AT THIS TIME. SITTER IN VIEW OF PT.
--- NOTE | 2019-02-25 04:47 | NUR ---
Pt report from Selma crump. This rn to assume care of pt. Pt sleeping comfortably on [facility]. Rr even and unlabored. Roller doors in place. Sitter in hallway.
--- NOTE | 2019-02-25 05:01 | NUR ---
Pt stripped of all clothes at this time and put in 6 bags, to contain smell, put in locked locker. Fecal matter all over room and all over pt. Pt refusing to shower still and refusing staff to change her sheets. Otherwise pleasant and cooperative w/ staff. "i just dont want to shower right now.... i dont care how smelly it is."
--- NOTE | 2019-02-25 05:31 | NUR ---
at bedside for reassessment.
--- NOTE | 2019-02-25 05:48 | NUR ---
Pt agrees to shower at this time and does a sub par job of scrubbing fecal matter off of self. States "i am done, i just want to lay down and sleep." Room scrubbed clean and fresh linens and chux supplied to pt.
--- NOTE | 2019-02-25 05:49 | NUR ---
Md states no need for breathalyzer at this time.
--- NOTE | 2019-02-25 06:29 | NUR ---
[facility] called and to be here at 0800 for assessment.
--- NOTE | 2019-02-25 06:51 | NUR ---
Pt report to kylah crump.
--- NOTE | 2019-02-25 06:58 | NUR ---
REPORT RECEIVED, CARE ASSUMED
--- NOTE | 2019-02-25 07:27 | NUR ---
PT MOSTLY SLEEPING IN SECURE ROOM. SITTER AT DOOR. WAITING FOR MEAL TRAY AND [facility]AL [facility].
--- NOTE | 2019-02-25 08:06 | NUR ---
[facility] STAFF HERE TO SAMANTHA CASTANEDA.
--- NOTE | 2019-02-25 08:15 | NUR ---
PT DOZING INTERMITTENTLY, AROUSES TO NAME. PT COOPERATIVE WITH V/S. WHEN ASKED HOW SHE IS DOING, MINIMAL REPLY. ASKED IF SHE DRINKS ALCOHOL DAILY, STATES "NO, I'M WAX, I'M NOTHING. I JUST WANT FOOD" PT PROVIDED WITH MEAL TRAY. REMAINS IN SECURE ROOM WITH SITTER AT DOOR.
[2019-02-25 08:38] VITALS: BP 115/65
--- NOTE | 2019-02-25 09:06 | NUR ---
PT CONT MOSTLY SLEEPING. CONT IN SECURE ROOM WITH SITTER AT DOOR. WATING FOR FURTHER DISPOSITION.
--- NOTE | 2019-02-25 10:05 | NUR ---
NO CHANGE IN PT CONDITION NOTED. RR DARLEEN CORDOBA UNLABORED. PT PROVIDED WITH PO FLUDS AT BEDSIDE.
--- NOTE | 2019-02-25 11:00 | NUR ---
PATIENT HAS BEEN ACCEPTED BY DR. ALARCON AT [facility].
--- NOTE | 2019-02-25 11:09 | NUR ---
CONT IN SECURE ROOM WITH SITTER AT DOOR. LUNCH MEAL REQUESTED FROM DIETARY. WAITING FOR FURTHER DISPOSITION.
--- NOTE | 2019-02-25 11:23 | NUR ---
RECEIVED CALL FROM RUDY AT [facility]. POC DISCUSSED. ACCEPTING MD DR ALARCON. NO ESTIMATED TIME OF TRANSPORT AT THIS TIME. CONT TO MONITOR.
--- NOTE | 2019-02-25 12:18 | NUR ---
PT CONT SLEEPING INTERMITTENTLY, AROUSES TO NAME, "I WANT FOOD" DISCUSSED WITH PT THAT IT HAS BEEN REQUESTED FROM [facility]. PT STATES PLACE "JOHNY" WHEN ASKED THE YEAR "I DONT KNOW" AWAITING TRANSPORT TO [facility].
--- NOTE | 2019-02-25 12:30 | NUR ---
BREAK RN: PATIENT SLEEPING IN FELIX WHEAT, VISIBLE CHEST RISE AND FALL. SITTER AT DOORWAY WITH PATIENT IN SIGHT.
--- NOTE | 2019-02-25 12:49 | NUR ---
BREAK RN: JOSE HERE TO TRANSFER PATIENT TO [facility]. PATIENT BEING VERBALLY AGGRESSIVE, REFUSING TO LEAVE. PATIENT REDIRECTED EASILY BY LETY GARCIA WITH STEADY GAIT TO AMBULANCE BAY WITH EMS. ALL PERSONAL BELONGINGS SENT WITH EMS.
== END 2019-02-25 12:58 ==
LOC: ED 19:33
DX: F06.2 Psychotic disorder with delusions due to known physiological condition (principal); F10.129 Alcohol abuse with intoxication, unspecified; F20.9 Schizophrenia, unspecified; F32.9 Major depressive disorder, single episode, unspecified
CPT/HCPCS: 36415; 80053; 80307; 85025; 99284

== ENCOUNTER 2019-03-10 20:22 | Emergency (ER) | payer MEDICAID ==
[~2019-03-10] VITALS: Ht 182.9 cm; Wt 94.0 kg
[2019-03-10 20:24] VITALS: BP 132/88
--- NOTE | 2019-03-10 20:39 | NUR ---
PT ELOPED PRIOR TO BEING SEEN BY PHYSICIAN, ENCOURAGED TO STAY AND BE EVALUATED, DECLINED AT THIS TIME
== END 2019-03-10 20:45 | disposition left against medical advice (07) ==
LOC: ED 20:39
DX: R52 Pain, unspecified (principal); F10.129 Alcohol abuse with intoxication, unspecified; Z53.21 Procedure and treatment not carried out due to patient leaving prior to being seen by health care provider

== ENCOUNTER 2019-03-14 18:30 | Emergency (ER) | payer MEDICAID ==
[~2019-03-14] VITALS: Ht 185.4 cm; Wt 96.9 kg
[2019-03-14] MEDS ORDERED: SODIUM CHLORIDE 0.9% 1,000ML IVBOLUS ONE (19:00)
[2019-03-14] MEDS ORDERED: SODIUM CHLORIDE FLUSH 10ML SYR IVF ONE (19:00)
[2019-03-14 19:20] LABS: BASOPHILS # (AUTO) 0.04 x10^3/uL (0-0.1); BASOPHILS % (AUTO) 0 % (0-1); EOSINOPHILS # (AUTO) 0.03 x10^3/uL (0-0.4); EOSINOPHILS % (AUTO) 0 % (1-7); LYMPHOCYTES % (AUTO) 18 % (22-44); MD NO; MEAN CORPUSCULAR HEMOGLOBIN 34.2 pg (27.0-34.8); MEAN CORPUSCULAR HGB CONC 33.8 g/dL (32.4-35.8); MEAN CORPUSCULAR VOLUME 101.2 fL (80-100); MEAN PLATELET VOLUME 7.4 fL (7.4-10.4); MONOCYTES # (AUTO) 0.52 x10^3/uL (0.2-0.8); MONOCYTES % (AUTO) 4 % (2-9); NEUTROPHILS # (AUTO) 10.59 x10^3/uL (1.8-6.8); NEUTROPHILS % (AUTO) 78 % (42-75); PLATELET COUNT 450 x10^3/uL (130-400); RED BLOOD COUNT 4.34 x10^6/uL (3.82-5.3); RED CELL DISTRIBUTION WIDTH 13.8 % (9.6-15.2)
[2019-03-14 19:29] LABS: INTERNATIONAL NORMALIZED RATIO 0.94 (0.93-1.1); PROTHROMBIN TIME 9.9 Seconds (9.6-11.5)
[2019-03-14] MEDS ORDERED: LORazepam 2 MG/ML, 1ML IVPush ONE (19:30)
[2019-03-14 19:31] LABS: ALANINE AMINOTRANSFERASE 19 U/L (12-78); ALBUMIN 3.5 g/dL (3.4-5.0); ANION GAP 12 mmol/L (5-15); CALCIUM 8.7 mg/dL (8.5-10.1); CHLORIDE 100 mmol/L (98-107); CREATININE 0.73 mg/dL (0.55-1.02)
[2019-03-14 19:36] LABS: ALKALINE PHOSPHATASE 133 U/L (45-117); BILIRUBIN,TOTAL 0.5 mg/dL (0.2-1.0); TOTAL PROTEIN 8.1 g/dL (6.4-8.2); TROPONIN I < 0.015 ng/mL (0.000-0.045)
--- NOTE | 2019-03-14 19:37 | NUR ---
PT TO ED FOR HEAVINESS IN LEFT CHEST X 4 DAYS. PT CONNECTED TO MONITORS. TEMP 99.0, TACHY 100S-110S, ALL OTHER VSS. AWAITING EDMD ASSESSMENT.
[2019-03-14] MEDS ORDERED: LORazepam 2 MG/ML, 1ML ONE (20:06)
--- NOTE | 2019-03-14 20:16 | NUR ---
pt resting in room. vss. lights dimmed per pt request. no other needs expressed. iv established and ivf infusing. pt medicated per mar. urine collected and sent. awaiting results.
--- NOTE | 2019-03-14 20:20 | NUR ---
pt to ct.
--- NOTE | 2019-03-14 20:34 | NUR ---
pt back from ct. tolerated well. tachy, vss. warm blanket provided. call light within reach.
[2019-03-14] MEDS ORDERED: OMNIPAQUE 350 MG/ML, 100ML BOTTLE ONE (20:36)
[2019-03-14 20:42] LABS: AMPHETAMINE SCREEN, URINE Negative (Negative); BARBITURATE SCREEN, URINE Negative (Negative); BENZODIAZEPINE SCREEN, URINE Negative (Negative); CANNABINOID SCREEN, URINE Negative (Negative); COCAINE SCREEN, URINE Negative (Negative); METHADONE SCREEN, URINE Negative (Negative); OPIATE SCREEN, URINE Negative (Negative)
[2019-03-14 20:59] VITALS: BP 139/81
== END 2019-03-14 21:45 | disposition home or self-care (01) ==
LOC: ED 20:42
DX: R07.89 Other chest pain (principal); R06.02 Shortness of breath; Z72.9 Problem related to lifestyle, unspecified; F10.10 Alcohol abuse, uncomplicated; F20.9 Schizophrenia, unspecified; Z90.721 Acquired absence of ovaries, unilateral
CPT/HCPCS: 36415; 71046; 71275; 80053; 80307; 84443; 84484; 85025; 85379; 85610; 85730; 93005; 96361; 96374; 99284; J2060; J7030; Q9967

== ENCOUNTER 2019-03-16 11:19 | Emergency (ER) | payer MEDICAID ==
[~2019-03-16] VITALS: Ht 185.4 cm; Wt 95.0 kg
[2019-03-16 11:45] VITALS: BP 113/66
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
--- NOTE | 2019-03-16 12:08 | NUR ---
PT UNABLE TO PROVIDE UA AT THIS TIME.
--- NOTE | 2019-03-16 12:13 | NUR ---
LUNCH RN: ED SI LUNCH TRAY ORDERED.
[2019-03-16 12:16] LABS: ALBUMIN 3.1 g/dL (3.4-5.0); ANION GAP 8 mmol/L (5-15); CALCIUM 8.4 mg/dL (8.5-10.1); CHLORIDE 104 mmol/L (98-107); SALICYLATE LEVEL 2.3 mg/dL (2.8-20.0)
[2019-03-16 12:19] LABS: BASOPHILS # (AUTO) 0.04 x10^3/uL (0-0.1); BASOPHILS % (AUTO) 1 % (0-1); EOSINOPHILS # (AUTO) 0.14 x10^3/uL (0-0.4); EOSINOPHILS % (AUTO) 2 % (1-7); LYMPHOCYTES # (AUTO) 1.59 x10^3/uL (1-3.4); LYMPHOCYTES % (AUTO) 17 % (22-44); MD NO; MEAN CORPUSCULAR HEMOGLOBIN 34.5 pg (27.0-34.8); MEAN CORPUSCULAR HGB CONC 33.9 g/dL (32.4-35.8); MEAN CORPUSCULAR VOLUME 101.8 fL (80-100); MEAN PLATELET VOLUME 7.5 fL (7.4-10.4); MONOCYTES # (AUTO) 0.39 x10^3/uL (0.2-0.8); MONOCYTES % (AUTO) 4 % (2-9); NEUTROPHILS # (AUTO) 6.98 x10^3/uL (1.8-6.8); NEUTROPHILS % (AUTO) 76 % (42-75); PLATELET COUNT 404 x10^3/uL (130-400); RED BLOOD COUNT 4.15 x10^6/uL (3.82-5.3); RED CELL DISTRIBUTION WIDTH 13.7 % (9.6-15.2)
--- NOTE | 2019-03-16 13:28 | NUR ---
Pt resting comfortably on gurney, no apparent distress, remains calm and cooperative, vss. Sitter at bedside. Meal tray and fluids provided.
[2019-03-16 16:26] LABS: AMPHETAMINE SCREEN, URINE Positive (Negative); BARBITURATE SCREEN, URINE Negative (Negative); BENZODIAZEPINE SCREEN, URINE Negative (Negative); CANNABINOID SCREEN, URINE Positive (Negative); COCAINE SCREEN, URINE Negative (Negative); METHADONE SCREEN, URINE Negative (Negative); OPIATE SCREEN, URINE Negative (Negative)
[2019-03-16 16:44] LABS: MICROSCOPIC AUTO
[2019-03-16 16:46] LABS: CULTURE INDICATED? YES
--- NOTE | 2019-03-16 17:34 | NUR ---
PACKET FAXED TO [facility], [facility] AND [facility]
--- NOTE | 2019-03-16 18:48 | NUR ---
Report called to recieving facility, Tyson RUIZ.
== END 2019-03-16 18:54 ==
LOC: ED 11:36
DX: R45.851 Suicidal ideations (principal); N30.00 Acute cystitis without hematuria; Z00.00 Encounter for general adult medical examination without abnormal findings; F20.9 Schizophrenia, unspecified; F32.9 Major depressive disorder, single episode, unspecified; F17.200 Nicotine dependence, unspecified, uncomplicated; Z90.721 Acquired absence of ovaries, unilateral
CPT/HCPCS: 36415; 80048; 80307; 81001; 82040; 85025; 87077; 87086; 87186; 99285

== ENCOUNTER 2019-04-07 20:17 | Emergency (ER) | payer MEDICAID ==
[~2019-04-07] VITALS: Ht 185.4 cm; Wt 94.0 kg
[~2019-04-07 20:17] MED LIST changes: +ZIPR20CA2 IM; -ZIPR20VI IM
[2019-04-07 20:20] VITALS: BP 102/78
--- NOTE | 2019-04-07 20:33 | NUR ---
Pt BIB EMS from home, recent release this morning from [facility], states "the voices arn't going away, I'm having thoughts of killing myself, I just want it to stop". Vitals stable, hx of schizophrenia, takes medications as presribed, denies recent ETOH or drug use. Assessment complete, provider at bedside. Garage doors down, safety in place per protocol. Pt denies current urge to hurt self, states thoughts w/ plan "come and go, but are mostly there and I can't make them stop".
[2019-04-07] MEDS ORDERED: HALOPERIDOL 5 MG/ML ONE (20:50)
--- NOTE | 2019-04-07 20:51 | NUR ---
Haldol route clarified by provider, give IM.
--- NOTE | 2019-04-07 20:54 | NUR ---
Medicated with IM haldol per MD orders. [facility], with follow up established. Per provider pt is safe and stable for discharge.
[2019-04-07] MEDS ORDERED: HALOPERIDOL 5 MG/ML IV ONE (21:00)
--- NOTE | 2019-04-07 21:27 | NUR ---
Pt stable for discharge home, ambulates w/ slow and steady gait to discharge desk.
[2019-04-16] MEDS ORDERED: OLAN5TAB3 PO (18:43)
[2019-04-16] MEDS ORDERED: HALO5TAB5 PO (18:43)
[2019-05-03] MEDS ORDERED: IBUP-1222 PO (02:28)
[2019-05-03] MEDS ORDERED: HALO10TA PO (02:28)
[2019-05-03] MEDS ORDERED: METH750T2 PO (02:28)
[2019-05-03] MEDS ORDERED: ARIP30TA4 PO (02:28)
[2019-05-03] MEDS ORDERED: PRED20TA PO (02:28)
[2019-05-03] MEDS ORDERED: HYDR25CA94 PO (02:28)
[2019-05-03] MEDS ORDERED: BENZ1TAB61 PO (02:28)
[2019-05-03] MEDS ORDERED: OLAN20TA14 PO (02:28)
== END 2019-04-07 21:31 | disposition home or self-care (01) ==
LOC: ED 20:50
DX: F20.0 Paranoid schizophrenia (principal); F32.9 Major depressive disorder, single episode, unspecified
CPT/HCPCS: 99284; J1630

== ENCOUNTER 2019-04-10 16:33 | Emergency (ER) | payer MEDICAID ==
[~2019-04-10] VITALS: Ht 185.4 cm; Wt 91.0 kg
--- NOTE | 2019-04-10 16:36 | NUR ---
PT ARRIVED VIA [facility] TO ROOM 20, AMBULATED FROM [facility] TO CHAIR. PT STATES SHE FELT LIKE SHE HAD SOMETHING IN HER EYE IN THE SHOWER AND GOT OUT TO FLUSH IT WITH SALINE BUT INSTEAD FLUSHED IT WITH HER CONTACT SOLUTION THAT CONTAINS HYDROGEN PEROXIDE. PT THEN PLACED CONTACT IN EYE WITHOUT RINSING. PER [facility] REPORT, CONTACT WAS REMOVED AND EYE WAS FLUSHED WITH SALINE AND TETRACAINE DROPS PLACED IN EYE AND PT STATED RELIEF. PT AMBULATED WITH [facility] FOR VISUAL ACUITY TEST.
--- NOTE | 2019-04-10 17:08 | NUR ---
MD AT BEDSIDE ASSESSING PT. EDUCATED ON NOT USING CONTACTS UNTIL FULLY HEALED
[2019-04-10 17:24] VITALS: BP 117/79
[2019-04-10] MEDS ORDERED: ERYTHROMYCIN OPHTH 0.5%, 1GM RIGHTEYE ONE (17:30)
[2019-04-10] MEDS ORDERED: HYDROcodone/APAP 5/325 TABLET PO ONE (17:30)
--- NOTE | 2019-04-10 17:31 | NUR ---
MEDICATED PER MD. DC INSTRUCTIONS GIVEN, PT ACKNOWLEDGED. AMBULATED STEADY TO DC AREA
[2019-04-16] MEDS ORDERED: OLAN5TAB3 PO (18:43)
[2019-04-16] MEDS ORDERED: HALO5TAB5 PO (18:43)
[2019-05-03] MEDS ORDERED: IBUP-1222 PO (02:28)
[2019-05-03] MEDS ORDERED: METH750T2 PO (02:28)
[2019-05-03] MEDS ORDERED: BENZ1TAB61 PO (02:28)
[2019-05-03] MEDS ORDERED: PRED20TA PO (02:28)
[2019-05-03] MEDS ORDERED: HYDR25CA94 PO (02:28)
[2019-05-03] MEDS ORDERED: ARIP30TA4 PO (02:28)
[2019-05-03] MEDS ORDERED: HALO10TA PO (02:28)
[2019-05-03] MEDS ORDERED: OLAN20TA14 PO (02:28)
== END 2019-04-10 17:35 | disposition home or self-care (01) ==
LOC: ED 16:39
DX: H18.821 Corneal disorder due to contact lens, right eye (principal); F20.9 Schizophrenia, unspecified; F32.9 Major depressive disorder, single episode, unspecified; F17.200 Nicotine dependence, unspecified, uncomplicated; Z90.721 Acquired absence of ovaries, unilateral
CPT/HCPCS: 99283

== ENCOUNTER 2019-04-16 18:34 | Emergency (ER) | payer MEDICAID ==
[~2019-04-16] VITALS: Ht 185.4 cm; Wt 91.0 kg
[2019-04-16 21:57] VITALS: BP 135/89
== END 2019-04-16 22:02 | disposition home or self-care (01) ==
LOC: ED 19:37
DX: F20.9 Schizophrenia, unspecified (principal); F41.1 Generalized anxiety disorder; F32.0 Major depressive disorder, single episode, mild; Z72.9 Problem related to lifestyle, unspecified; Z90.721 Acquired absence of ovaries, unilateral; Z90.49 Acquired absence of other specified parts of digestive tract
CPT/HCPCS: 36415; 80053; 80307; 85025; 99284

== ENCOUNTER 2019-07-23 09:17 | Emergency (ER) | payer MEDICAID ==
[~2019-07-23] VITALS: Ht 185.4 cm; Wt 106.6 kg
[~2019-07-23 09:17] MED LIST changes: +ARIP30TA4 PO; +HALO10TA PO; +HALO5TAB5 PO; +HYDR25CA94 PO; +IBUP-1222 PO; +METH750T2 PO; +OLAN20TA14 PO; +OLAN5TAB3 PO; +PRED20TA PO; -ZIPR20CA2 IM; +ZIPR20VI IM
[2019-07-23 09:19] VITALS: BP 135/87
--- NOTE | 2019-07-23 09:33 | NUR ---
PT HAS CO OF DIZZYNESS AND VERTIGO THAT STARTED THIS AM. PT STATES "SHE IS SPINNING" DENIES N/V/D
[2019-07-23] MEDS ORDERED: MECLIZINE CHEWABLE 25 MG TAB ONE (09:46)
[2019-07-23] MEDS ORDERED: MECLIZINE CHEWABLE 25 MG TAB PO ONE (10:00)
[2019-07-23 10:16] LABS: BASOPHILS # (AUTO) 0.04 x10^3/uL (0-0.1); BASOPHILS % (AUTO) 1 % (0-1); EOSINOPHILS # (AUTO) 0.06 x10^3/uL (0-0.4); EOSINOPHILS % (AUTO) 1 % (1-7); LYMPHOCYTES # (AUTO) 1.74 x10^3/uL (1-3.4); LYMPHOCYTES % (AUTO) 24 % (22-44); MD NO; MEAN CORPUSCULAR HEMOGLOBIN 33.2 pg (27.0-34.8); MEAN CORPUSCULAR HGB CONC 33.6 g/dL (32.4-35.8); MEAN CORPUSCULAR VOLUME 98.8 fL (80-100); MEAN PLATELET VOLUME 7.2 fL (7.4-10.4); MONOCYTES # (AUTO) 0.28 x10^3/uL (0.2-0.8); MONOCYTES % (AUTO) 4 % (2-9); NEUTROPHILS # (AUTO) 5.03 x10^3/uL (1.8-6.8); NEUTROPHILS % (AUTO) 70 % (42-75); PLATELET COUNT 348 x10^3/uL (130-400); RED BLOOD COUNT 4.14 x10^6/uL (3.82-5.3); RED CELL DISTRIBUTION WIDTH 13.2 % (9.6-15.2)
[2019-07-23 10:27] LABS: ALANINE AMINOTRANSFERASE 26 U/L (12-78); ALBUMIN 3.3 g/dL (3.4-5.0); ANION GAP 4 mmol/L (5-15); CALCIUM 8.3 mg/dL (8.5-10.1); CHLORIDE 110 mmol/L (98-107); CREATININE 0.54 mg/dL (0.55-1.02)
[2019-07-23 10:30] LABS: ALKALINE PHOSPHATASE 101 U/L (45-117); BILIRUBIN,TOTAL 0.3 mg/dL (0.2-1.0)
--- NOTE | 2019-07-23 11:44 | NUR ---
GIVEN JUICE AND CRACKERS
--- NOTE | 2019-07-23 11:44 | NUR ---
Patient/Caregiver given discharge instructions and they have confirmed that they understand the instructions. Patient ambulatory with steady gait.
== END 2019-07-23 11:46 | disposition home or self-care (01) ==
LOC: ED 11:44
DX: R53.1 Weakness (principal); R55 Syncope and collapse; R42 Dizziness and giddiness
CPT/HCPCS: 36415; 80053; 85025; 93005; 99284

== ENCOUNTER 2019-07-24 19:40 | Emergency (ER) | payer MEDICAID ==
[~2019-07-24] VITALS: Ht 175.3 cm; Wt 90.9 kg
[2019-07-24 19:44] VITALS: BP 115/79
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
--- NOTE | 2019-07-24 20:19 | NUR ---
PT COOPERATIVE AND PLEASENT. PT PROVIDED SUICIDE/SECURITY MEAL TRY
--- NOTE | 2019-07-24 20:25 | NUR ---
PT UPDATED ON POC
[2019-07-24 20:42] LABS: AMPHETAMINE SCREEN, URINE Negative (Negative); BARBITURATE SCREEN, URINE Negative (Negative); BENZODIAZEPINE SCREEN, URINE Negative (Negative); CANNABINOID SCREEN, URINE Negative (Negative); COCAINE SCREEN, URINE Negative (Negative); METHADONE SCREEN, URINE Negative (Negative); OPIATE SCREEN, URINE Negative (Negative)
[2019-07-24 20:47] LABS: BASOPHILS # (AUTO) 0.04 x10^3/uL (0-0.1); BASOPHILS % (AUTO) 1 % (0-1); EOSINOPHILS # (AUTO) 0.17 x10^3/uL (0-0.4); EOSINOPHILS % (AUTO) 2 % (1-7); LYMPHOCYTES # (AUTO) 2.35 x10^3/uL (1-3.4); LYMPHOCYTES % (AUTO) 29 % (22-44); MD NO; MEAN CORPUSCULAR HGB CONC 33.7 g/dL (32.4-35.8); MEAN CORPUSCULAR VOLUME 100.8 fL (80-100); MEAN PLATELET VOLUME 7.5 fL (7.4-10.4); MONOCYTES % (AUTO) 5 % (2-9); NEUTROPHILS # (AUTO) 5.12 x10^3/uL (1.8-6.8); NEUTROPHILS % (AUTO) 63 % (42-75); PLATELET COUNT 367 x10^3/uL (130-400); RED BLOOD COUNT 3.99 x10^6/uL (3.82-5.3)
[2019-07-24 20:58] LABS: ALBUMIN 3.3 g/dL (3.4-5.0); ANION GAP 6 mmol/L (5-15); CALCIUM 8.1 mg/dL (8.5-10.1); CHLORIDE 108 mmol/L (98-107)
[2019-07-24 21:01] LABS: ALANINE AMINOTRANSFERASE 24 U/L (12-78); ALKALINE PHOSPHATASE 108 U/L (45-117); BILIRUBIN,TOTAL 0.3 mg/dL (0.2-1.0); CREATININE 0.49 mg/dL (0.55-1.02); TOTAL PROTEIN 7.1 g/dL (6.4-8.2)
--- NOTE | 2019-07-24 21:52 | NUR ---
CALLED JE[facility] SPOKE W/ ROSAS PT IS IN THE QUEUE
--- NOTE | 2019-07-24 22:34 | NUR ---
PT RESTING ON GURNEY WITH EYES CLOSED. RESPIRATIONS EVEN AND UNLABORED. SITTER AT DOORWAY FOR 1:1 OBSERVATION
--- NOTE | 2019-07-24 23:45 | NUR ---
spoke with dr daly. he states he wants pt to go to [facility] and asked me to call over and see if they justin laccept her. dr daly phone number [phone]
--- NOTE | 2019-07-25 00:37 | NUR ---
SPOKE WITH CELESTE AT [facility] AND SHE STATES THEY CURRENTLY AT [facility] AND TO SEND A PACKET TO THEM FOR CONSIDERATION
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
--- NOTE | 2019-07-25 03:26 | NUR ---
PT RESTING ON GURNEY WITH EYES CLOSED. RESPIRATIONS EVEN AND UNLABORED. SITTER AT DOORWAY FOR FREQUENT CHECKS
--- NOTE | 2019-07-25 05:30 | NUR ---
REPORT GIVEN TO DR HIDALGO, SOC. PT CURRENTLY PARTICIPATING IN TELEPSYCH WITH SOC
--- NOTE | 2019-07-25 05:59 | NUR ---
Pt accepted to 3E by psychiatrist. ERP placed on hold following tele-psyche consult.
--- NOTE | 2019-07-25 06:02 | NUR ---
report to howard crump
== END 2019-07-25 06:32 ==
LOC: ED 21:53
DX: F25.1 Schizoaffective disorder, depressive type (principal); F29 Unspecified psychosis not due to a substance or known physiological condition; I10 Essential (primary) hypertension; F17.200 Nicotine dependence, unspecified, uncomplicated; Z90.89 Acquired absence of other organs; Z59.0 Homelessness
CPT/HCPCS: 36415; 80053; 80307; 85025; 99284

== ENCOUNTER 2019-07-25 06:12 | Inpatient (IN) | payer MEDICAID ==
[~2019-07-25] VITALS: Ht 185.4 cm; Wt 102.6 kg
[2019-07-25 06:28] VITALS: BP 107/73
[2019-07-25] MEDS ORDERED: ONDANSETRON ODT 4 MG PO PRN (06:30)
[2019-07-25] MEDS ORDERED: DOCUSATE 100 MG CAPSULE PO PRN (06:30)
[2019-07-25] MEDS ORDERED: POLYETHYLENE GLYCOL 17 GM PACKET PO PRN (06:30)
[2019-07-25] MEDS ORDERED: BISACODYL 10 MG SUPP PR PRN (06:30)
[2019-07-25 08:06] VITALS: BP 107/73
[2019-07-25] MEDS: NICOTINE 14MG/24 HR PATCH.TD24 TD SCH ×2 (09:00→09:30)
[2019-07-25] MEDS: ACETAMINOPHEN 325 MG TABLET PO PRN (09:30)
[2019-07-25 10:50] LABS: ANION GAP 3 mmol/L (5-15); CALCIUM 8.4 mg/dL (8.5-10.1); CHLORIDE 111 mmol/L (98-107); CHOLESTEROL, TOTAL 148 mg/dL (140-239); CREATININE 0.55 mg/dL (0.55-1.02); TRIGLYCERIDES 190 mg/dL (50-200); VLDL CHOLESTEROL 38 mg/dL (0-25)
[2019-07-25 11:00] LABS: FREE T4 (FREE THYROXINE) 1.07 ng/dL (0.76-1.46); HDL CHOL % 25 % (28-40); HDL CHOLESTEROL (DIRECT) 37 mg/dL (40-60); LDL CHOLESTEROL,CALCULATED 73 mg/dL (54-169)
[2019-07-25] MEDS: ZIPRASIDONE 20MG CAPSULE PO SCH ×2 (16:22→20:05)
[2019-07-25 19:31] VITALS: BP 112/71
[2019-07-26 07:51] VITALS: BP 102/72
[2019-07-26] MEDS: NICOTINE 14MG/24 HR PATCH.TD24 TD SCH (08:01)
[2019-07-26] MEDS: ZIPRASIDONE 20MG CAPSULE PO SCH ×2 (08:01→20:22)
[2019-07-26 19:34] VITALS: BP 139/87
[2019-07-27] MEDS ORDERED: LORazepam 1MG TABLET PO ONE (02:30)
[2019-07-27 07:26] VITALS: BP 103/71
[2019-07-27] MEDS: ZIPRASIDONE 20MG CAPSULE PO SCH ×2 (08:26→20:22)
[2019-07-27] MEDS: NICOTINE 14MG/24 HR PATCH.TD24 TD SCH (08:28)
[2019-07-27 19:41] VITALS: BP 104/66
[2019-07-28 07:24] VITALS: BP 101/75
[2019-07-28] MEDS: ZIPRASIDONE 20MG CAPSULE PO SCH ×2 (10:06→20:05)
[2019-07-28] MEDS: NICOTINE 14MG/24 HR PATCH.TD24 TD SCH (10:08)
[2019-07-28 19:47] VITALS: BP 94/56
[2019-07-29 07:00] VITALS: BP 102/73
[2019-07-29 07:56] LABS: MICROSCOPIC AUTO
[2019-07-29 08:07] LABS: CULTURE INDICATED? YES
[2019-07-29] MEDS: ZIPRASIDONE 20MG CAPSULE PO SCH ×2 (08:15→20:28)
[2019-07-29] MEDS: NICOTINE 14MG/24 HR PATCH.TD24 TD SCH (08:16)
[2019-07-29 19:00] VITALS: BP 129/82
[2019-07-29] MEDS: ACETAMINOPHEN 325 MG TABLET PO PRN (20:30)
[2019-07-30 08:00] VITALS: BP 115/73
[2019-07-30] MEDS: ZIPRASIDONE 20MG CAPSULE PO SCH (08:38)
[2019-07-30] MEDS: NICOTINE 14MG/24 HR PATCH.TD24 TD SCH (08:39)
[2019-07-30] MEDS ORDERED: NICO-486 TD (12:16)
[2019-07-30] MEDS ORDERED: ZIPR20CA2 PO (12:16)
== END 2019-07-30 13:00 | disposition home or self-care (01) | DRG 885 ==
LOC: 3E 06:25
PROVIDERS: ADMIT Psychiatry & Neurology Psychosomatic Medicine; ATTEND Psychiatry & Neurology Psychosomatic Medicine
DX: F25.1 Schizoaffective disorder, depressive type (principal); R45.851 Suicidal ideations; F17.210 Nicotine dependence, cigarettes, uncomplicated; F41.9 Anxiety disorder, unspecified; Z59.0 Homelessness; Z91.14 Patient's other noncompliance with medication regimen; E87.6 Hypokalemia
CPT/HCPCS: 36415; 80048; 80061; 81001; 82140; 82962; 84439; 84443; 84702; 87086; 92523-GN

== ENCOUNTER 2019-07-30 23:24 | Emergency (ER) | payer MEDICAID ==
[~2019-07-30] VITALS: Ht 182.9 cm; Wt 95.0 kg
[~2019-07-30 23:24] MED LIST changes: +NICO-486 TD; +ZIPR20CA2 PO
[2019-07-30 23:27] VITALS: BP 132/78
== END 2019-07-31 00:49 | disposition home or self-care (01) ==
LOC: ED 23:41
DX: F20.89 Other schizophrenia (principal); Z72.9 Problem related to lifestyle, unspecified
CPT/HCPCS: 99284

== ENCOUNTER 2019-08-14 01:32 | Emergency (ER) | payer MEDICAID ==
[~2019-08-14] VITALS: Ht 185.4 cm; Wt 108.0 kg
[2019-08-14 01:37] VITALS: BP 129/88
--- NOTE | 2019-08-14 01:47 | NUR ---
PT TO ROOM AWAITNG ERP AND ORDERS.
--- NOTE | 2019-08-14 02:05 | NUR ---
PT AWAITING TELE PSYCH FOR MEDICATION ORDERS.
--- NOTE | 2019-08-14 04:35 | NUR ---
PT ASLEEP IN NO DISTRESS. AWAITING TELE PSYCH
[2019-08-14] MEDS ORDERED: OLANZAPINE 5 MG TABLET ONE (05:13)
--- NOTE | 2019-08-14 05:24 | NUR ---
PT MEDICATED ORDERED AND WILL BE DC TO HOME AT 0600
[2019-08-14] MEDS ORDERED: OLANZAPINE 5 MG TABLET PO ONE (05:30)
== END 2019-08-14 06:24 | disposition home or self-care (01) ==
LOC: ED 02:07
DX: F25.8 Other schizoaffective disorders (principal); F29 Unspecified psychosis not due to a substance or known physiological condition; I10 Essential (primary) hypertension; F17.200 Nicotine dependence, unspecified, uncomplicated; F41.1 Generalized anxiety disorder
CPT/HCPCS: 99284

== ENCOUNTER 2020-01-12 14:21 | Inpatient (IN) | payer MEDICAID ==
[~2020-01-12] VITALS: Ht 185.4 cm; Wt 111.8 kg
[~2020-01-12 14:21] MED LIST changes: -NALT50TA PO; -PALI156D IM
[2020-01-12] MEDS ORDERED: ONDANSETRON ODT 4 MG PO PRN (16:30)
[2020-01-12] MEDS ORDERED: BISACODYL 10 MG SUPP PR PRN (16:30)
[2020-01-12] MEDS ORDERED: ACETAMINOPHEN 325 MG TABLET PO PRN (16:30)
[2020-01-12] MEDS ORDERED: PLEASE ENTER HEIGHT AND WEIGHT MC SCH (16:30)
[2020-01-12] MEDS ORDERED: DOCUSATE 100 MG CAPSULE PO PRN (16:30)
[2020-01-12] MEDS ORDERED: POLYETHYLENE GLYCOL 17 GM PACKET PO PRN (16:30)
[2020-01-12] MEDS ORDERED: PALI156D IM (16:32)
[2020-01-12] MEDS ORDERED: NALT50TA PO (16:32)
[2020-01-12 16:33] VITALS: BP 117/76
[2020-01-12 19:36] VITALS: BP 125/73
[2020-01-13 07:00] VITALS: BP 137/85
[2020-01-13] MEDS ORDERED: POTASSIUM CHLORIDE 20 MEQ TAB.ER.PRT PO ONE (09:30)
[2020-01-13 09:34] LABS: CHOL/HDL RATIO 3.5; FREE T4 (FREE THYROXINE) 1.06 ng/dL (0.76-1.46); LDL/HDL RATIO 1.6 (0.5-3.0)
[2020-01-13] MEDS: DIAZEPAM 5 MG TABLET PO SCH ×3 (12:38→21:02)
[2020-01-13 15:15] LABS: CULTURE INDICATED? YES; MICROSCOPIC INDICATED
[2020-01-13 20:00] VITALS: BP 141/83
[2020-01-14 07:39] VITALS: BP 120/71
[2020-01-14] MEDS: DIAZEPAM 5 MG TABLET PO SCH ×2 (08:50→21:00)
[2020-01-14 19:15] VITALS: BP 120/76
[2020-01-15 07:00] VITALS: BP 127/74
[2020-01-15] MEDS: DIAZEPAM 5 MG TABLET PO SCH ×2 (09:00→21:00)
[2020-01-15 19:56] VITALS: BP 128/81
[2020-01-16 07:00] VITALS: BP 132/74
[2020-01-16] MEDS: DIAZEPAM 5 MG TABLET PO SCH ×2 (09:00→20:11)
[2020-01-16 19:38] VITALS: BP 129/76
[2020-01-17 07:39] VITALS: BP 104/72
[2020-01-17] MEDS: DIAZEPAM 5 MG TABLET PO SCH (09:05)
== END 2020-01-17 13:00 | disposition home or self-care (01) | DRG 750 ==
LOC: 3E 15:41
PROVIDERS: ADMIT Psychiatry & Neurology Psychosomatic Medicine; ATTEND Psychiatry & Neurology Psychosomatic Medicine
DX: F25.1 Schizoaffective disorder, depressive type (principal); Z59.0 Homelessness; E87.6 Hypokalemia; F10.20 Alcohol dependence, uncomplicated; F17.200 Nicotine dependence, unspecified, uncomplicated; Z91.19 Patient's noncompliance with other medical treatment and regimen; Z90.89 Acquired absence of other organs; Z82.5 Family history of asthma and other chronic lower respiratory diseases; Z83.49 Family history of other endocrine, nutritional and metabolic diseases
CPT/HCPCS: 36415; 71045; 80061; 81001; 84439; 84443; 87086; 93005; U0001

== ENCOUNTER → 2020-01-12 | Emergency (ER) | payer MEDICAID ==
[~2020-01-12] VITALS: Ht 185.4 cm; Wt 120.0 kg
[~2020-01-12] MED LIST changes: +NALT50TA PO; +PALI156D IM; -TRAZ-137 PO; +TRAZ-175 PO
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
--- NOTE | 2020-01-12 06:27 | NUR ---
PT STATES SHE IS UNABLE TO URINATE AT THIS TIME. PT PROVIDED TWO CUPS OF WATER TO PROMOTE MICTURITION.
[2020-01-12 06:54] LABS: BASOPHILS # (AUTO) 0.04 x10^3/uL (0-0.1); BASOPHILS % (AUTO) 1 % (0-1); EOSINOPHILS # (AUTO) 0.02 x10^3/uL (0-0.4); EOSINOPHILS % (AUTO) 0 % (1-7); LYMPHOCYTES # (AUTO) 1.96 x10^3/uL (1-3.4); LYMPHOCYTES % (AUTO) 31 % (22-44); MD NO; MEAN CORPUSCULAR HEMOGLOBIN 33.4 pg (27.0-34.8); MEAN CORPUSCULAR HGB CONC 33.7 g/dL (32.4-35.8); MEAN CORPUSCULAR VOLUME 98.9 fL (80-100); MEAN PLATELET VOLUME 7.3 fL (7.4-10.4); MONOCYTES # (AUTO) 0.29 x10^3/uL (0.2-0.8); MONOCYTES % (AUTO) 5 % (2-9); NEUTROPHILS # (AUTO) 3.93 x10^3/uL (1.8-6.8); NEUTROPHILS % (AUTO) 63 % (42-75); PLATELET COUNT 339 x10^3/uL (130-400); RED BLOOD COUNT 4.41 x10^6/uL (3.82-5.3); RED CELL DISTRIBUTION WIDTH 12.7 % (9.6-15.2)
[2020-01-12 06:59] LABS: ALBUMIN 3.5 g/dL (3.4-5.0); ANION GAP 9 mmol/L (5-15); CHLORIDE 111 mmol/L (98-107)
[2020-01-12 07:06] LABS: ALANINE AMINOTRANSFERASE 15 U/L (12-78); ALKALINE PHOSPHATASE 113 U/L (45-117); BILIRUBIN,TOTAL 0.3 mg/dL (0.2-1.0); CREATININE 0.58 mg/dL (0.55-1.02); SALICYLATE LEVEL 3.9 mg/dL (2.8-20.0); TOTAL PROTEIN 7.5 g/dL (6.4-8.2)
--- NOTE | 2020-01-12 07:07 | NUR ---
RECEIVED REPORT FROM SARA DUKES. THIS RN TO ASSUME CARE. PT IN LAYING IN BED, RESPIRATIONS EVEN AND UNLABORED, EYES CLOSED, NO SIGNS OF DISTRESS. PT IN VIEW OF THE SITTER.
--- NOTE | 2020-01-12 07:20 | NUR ---
REPORT RECEIVED FROM CESAR RUIZ.
--- NOTE | 2020-01-12 08:24 | NUR ---
pt still sleeping. meal tray provided at this time.
--- NOTE | 2020-01-12 09:10 | NUR ---
breathalyzer 0.166 at this time.
--- NOTE | 2020-01-12 09:30 | NUR ---
pt still sleeping. resps even and unlabored. sitter monitoring from [facility] for safety.
[2020-01-12 10:05] VITALS: BP 127/84
--- NOTE | 2020-01-12 10:05 | NUR ---
pt states"i can't pee now. i will try it later." urine cup in room.
--- NOTE | 2020-01-12 10:21 | NUR ---
pt still sleeping. resps even and unlabored. sitter monitoring from [facility] for safety. r
--- NOTE | 2020-01-12 11:02 | NUR ---
meal tray ordered at this time.
--- NOTE | 2020-01-12 11:52 | NUR ---
BREAK RN NOTE: PT RESTING ON GURNEY, RESPS EVEN AND UNLABORED. PT AWAKENS TO VOICE. PT INSTRUCTED TO PROVIDE CLEAN CATCH URINE SAMPLE, PT IRRITABLE, STATING SHE DOES NOT NEED TO VOID AT THIS TIME. SITTER MONITORING FROM [facility] FOR SAFETY.
--- NOTE | 2020-01-12 12:04 | NUR ---
primary SARA Meyers returned from meal break, report given back to SARA Meyers.
--- NOTE | 2020-01-12 12:30 | NUR ---
breathalyzer 0.105 at this time.
--- NOTE | 2020-01-12 12:31 | NUR ---
pt still states "i can't pee.i'm drinking water but can't" pt awares of ua. urine cup in room.
--- NOTE | 2020-01-12 12:49 | NUR ---
MEAL TRAY PROVIDED AT THIS TIME.
--- NOTE | 2020-01-12 12:49 | NUR ---
PROFESSOR OF EXERCISE SCIENCE AT BEDSIDE TO EVALUATE AT THIS TIME.
--- NOTE | 2020-01-12 12:54 | NUR ---
PT AMB TO BR AND BACK TO ROOM WITH STEADY GAIT. PT PROVIDED URINE SAMPLE AT THIS TIME. UA SENT.
[2020-01-12 13:00] LABS: MICROSCOPIC NOT IND
[2020-01-12 13:06] LABS: CULTURE INDICATED? NO
[2020-01-12 13:11] LABS: AMPHETAMINE SCREEN, URINE Negative (Negative); BARBITURATE SCREEN, URINE Negative (Negative); BENZODIAZEPINE SCREEN, URINE Negative (Negative); CANNABINOID SCREEN, URINE Negative (Negative); COCAINE SCREEN, URINE Negative (Negative); METHADONE SCREEN, URINE Negative (Negative); OPIATE SCREEN, URINE Negative (Negative)
--- NOTE | 2020-01-12 14:01 | NUR ---
breathalyzer 0.06 at this time.
--- NOTE | 2020-01-12 14:12 | NUR ---
pt amb to room 3 with steady gait.
--- NOTE | 2020-01-12 14:41 | NUR ---
this rn called for report x 1. primary rn on lunch break at this time. will call back.
--- NOTE | 2020-01-12 15:06 | NUR ---
REPORT GIVEN TO ULI RUIZ. ALL QUESTIONS ANSWERED.
== END ==
LOC: ED 06:27
DX: F33.2 Major depressive disorder, recurrent severe without psychotic features (principal); F10.120 Alcohol abuse with intoxication, uncomplicated; Z90.89 Acquired absence of other organs; Y90.9 Presence of alcohol in blood, level not specified
CPT/HCPCS: 36415; 80053; 80307; 81003; 84443; 84703; 85025; 99284

== ENCOUNTER 2020-02-28 22:12 | Emergency (ER) | payer MEDICAID ==
[~2020-02-28] VITALS: Ht 185.4 cm; Wt 118.6 kg
[~2020-02-28 22:12] MED LIST changes: +ACET-2274 PO; -ACET325T21 PO; +NALT50TA PO; +PALI156D IM
[2020-02-28 22:17] VITALS: BP 104/72
== END 2020-02-28 23:28 | disposition home or self-care (01) ==
LOC: ED 23:25
DX: R50.9 Fever, unspecified (principal); I10 Essential (primary) hypertension; F17.200 Nicotine dependence, unspecified, uncomplicated; Z90.722 Acquired absence of ovaries, bilateral; Z90.89 Acquired absence of other organs
CPT/HCPCS: 99283

== ENCOUNTER 2020-04-20 19:51 | Emergency (ER) | payer MEDICAID ==
[~2020-04-20] VITALS: Ht 185.4 cm; Wt 118.4 kg
[2020-04-20 19:55] VITALS: BP 122/79
--- NOTE | 2020-04-20 20:16 | NUR ---
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
--- NOTE | 2020-04-20 20:19 | NUR ---
Elisabeth joseph in EDM - 04/20/20 at 2020 by SOSA PT AMBULATES FROM LOBBY TO ROOM WITH STEADY GAIT. PT CHANGING INTO GOWN AT THIS TIME. PT INSTRUCTED ON NEED TO VOID AND VERBALIZES UNDERSTANDING.
--- NOTE | 2020-04-20 20:21 | NUR ---
PT AMBULATES FROM LOBBY TO ROOM WITH STEADY GAIT. PT CHANGING INTO GOWN AT THIS TIME. PT INSTRUCTED ON NEED TO VOID AND VERBALIZES UNDERSTANDING.
== END 2020-04-20 20:39 | disposition home or self-care (01) ==
LOC: ED 20:01
DX: K43.2 Incisional hernia without obstruction or gangrene (principal); R10.10 Upper abdominal pain, unspecified; F17.210 Nicotine dependence, cigarettes, uncomplicated; Z90.89 Acquired absence of other organs; Z90.721 Acquired absence of ovaries, unilateral
CPT/HCPCS: 99281; 99406

== ENCOUNTER 2020-07-13 09:17 | Emergency (ER) | payer MEDICAID ==
[~2020-07-13] VITALS: Ht 185.4 cm; Wt 102.0 kg
--- NOTE | 2020-07-13 09:30 | NUR ---
55 YR OLD FEMALE ARRIVED VIA EMS, WITH C/O "VERTIGO" THIS EPISODE BEGAN ON FRIDAY. PT STATES "FEELS LIKE IN A BUBBLE, I FEEL LIKE I'M GOING TO PASS OUT, WHEN I TURN MY HEAD TO THE LEFT" PT PLACED ON MONITORS, AUTO BP AND PULSE OX. CHIKI NAJERA AT BEDSIDE TO EVTANGELA PT.
--- NOTE | 2020-07-13 09:52 | NUR ---
ORTHOSTATIC V/S DONE. CHIKI NAJERA NOTIFIED.
[2020-07-13] MEDS ORDERED: MECLIZINE CHEWABLE 25 MG TAB PO ONE (10:00)
[2020-07-13] MEDS ORDERED: MECLIZINE CHEWABLE 25 MG TAB ONE (10:09)
[2020-07-13 10:39] LABS: BASOPHILS % (AUTO) 1 % (0-1); EOSINOPHILS % (AUTO) 1 % (1-7); LYMPHOCYTES % (AUTO) 19 % (22-44); MEAN CORPUSCULAR HEMOGLOBIN 33.8 pg (27.0-34.8); MEAN CORPUSCULAR HGB CONC 33.2 g/dL (32.4-35.8); MEAN PLATELET VOLUME 7.4 fL (7.4-10.4); MONOCYTES % (AUTO) 5 % (2-9); NEUTROPHILS % (AUTO) 74 % (42-75); PLATELET COUNT 344 x10^3/uL (130-400); RED BLOOD COUNT 4.61 x10^6/uL (3.82-5.3)
[2020-07-13 10:48] LABS: ALANINE AMINOTRANSFERASE 12 U/L (12-78); ALBUMIN 3.5 g/dL (3.4-5.0); ANION GAP 4 mmol/L (5-15); CALCIUM 8.9 mg/dL (8.5-10.1); CHLORIDE 107 mmol/L (98-107); CREATININE 0.64 mg/dL (0.55-1.02)
[2020-07-13 10:52] LABS: ALKALINE PHOSPHATASE 126 U/L (45-117); BILIRUBIN,TOTAL 0.5 mg/dL (0.2-1.0); TOTAL PROTEIN 7.7 g/dL (6.4-8.2)
[2020-07-13 11:04] VITALS: BP 126/95
--- NOTE | 2020-07-13 11:04 | NUR ---
PT WITH ONGOING C/O "I'M STILL SO DIZZY. THEY WANT A URINE SPECIMAN, BUT I CANT PEE YET" PT PROVIDED WITH PO FLUIDS.
[2020-07-13 11:14] LABS: MD SCAN
[2020-07-13 11:47] LABS: MICROSCOPIC INDICATED
== END 2020-07-13 12:52 | disposition home or self-care (01) ==
LOC: ED 10:17
DX: R42 Dizziness and giddiness (principal); R51.9 Headache, unspecified
CPT/HCPCS: 36415; 80053; 81001; 84702; 85025; 87086; 93005; 99284

== ENCOUNTER 2020-09-09 18:40 | Emergency (ER) | payer MEDICAID ==
[~2020-09-09] VITALS: Ht 175.3 cm; Wt 100.0 kg
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
--- NOTE | 2020-09-09 18:56 | NUR ---
REPORT RECEVIED FROM EVE RUIZ
--- NOTE | 2020-09-09 19:06 | NUR ---
pt states she wants to go to top of [facility] parking garage and jump off to kill hereslf. pt says she did go to the garage but decided to not jump cause she thought it would hurt too much and not actually kill herself. pt states the voices she hears tell her she is going to . pt also states she called 911 herself. pt is calm and pleasant, resting in gurney and follows commands
--- NOTE | 2020-09-09 19:13 | NUR ---
Telepsych Addendum: 09/09/20 at 1913 by [email or web address] telepsych consult della.
[2020-09-09 19:21] LABS: BASOPHILS % (AUTO) 1 % (0-1); EOSINOPHILS % (AUTO) 1 % (1-7); LYMPHOCYTES % (AUTO) 27 % (22-44); MEAN CORPUSCULAR HEMOGLOBIN 34.8 pg (27.0-34.8); MEAN CORPUSCULAR HGB CONC 34.6 g/dL (32.4-35.8); MONOCYTES % (AUTO) 5 % (2-9); NEUTROPHILS % (AUTO) 67 % (42-75); PLATELET COUNT 410 x10^3/uL (130-400); RED BLOOD COUNT 4.05 x10^6/uL (3.82-5.3); RED CELL DISTRIBUTION WIDTH 13.1 % (9.6-15.2)
[2020-09-09 19:22] LABS: MD NO
--- NOTE | 2020-09-09 19:22 | NUR ---
PT IS IN HOSPITAL GOWN, ALL PERSONAL BELONGINGS BAGGED AND LABELED WITH PT STICKER. PT WALKED TO RESTROOM WITH STEADY GAIT. PT HAS STUFFED RABBIT SHE CALLS BUNNY WITH HER THAT SHE IS VERY ATTACHED TOO.
[2020-09-09 19:31] LABS: ALANINE AMINOTRANSFERASE 19 U/L (12-78); ALBUMIN 3.3 g/dL (3.4-5.0); ANION GAP 5 mmol/L (5-15); CALCIUM 8.2 mg/dL (8.5-10.1); CHLORIDE 106 mmol/L (98-107); CREATININE 0.65 mg/dL (0.55-1.02); SALICYLATE LEVEL 3.8 mg/dL (2.8-20.0)
[2020-09-09 19:33] LABS: ALKALINE PHOSPHATASE 98 U/L (45-117); BILIRUBIN,TOTAL 0.2 mg/dL (0.2-1.0)
--- NOTE | 2020-09-09 19:35 | NUR ---
pt calm and cooperative, in room one in gown and tele psych is placed in room. sitter at bedside. pts belongings locked in hospital locker and pts stuffed bunny was also placed with her belongings as she is attached and doesn't want to lose the bunny, per pt.
--- NOTE | 2020-09-09 19:35 | NUR ---
REPORT GIVEN TO GABRIEL RUIZ. PT MOVED TO ROOM 01. GARAGE DOORS DOWN, SI PRECAUTIONS IN PALCE. SITTER AT DOORWAY. PT VERBALIZES UNDERSTAINDING OF POC.
[2020-09-09 20:16] LABS: AMPHETAMINE SCREEN, URINE Negative (Negative); BARBITURATE SCREEN, URINE Negative (Negative); BENZODIAZEPINE SCREEN, URINE Negative (Negative); CANNABINOID SCREEN, URINE Negative (Negative); COCAINE SCREEN, URINE Negative (Negative); METHADONE SCREEN, URINE Negative (Negative); OPIATE SCREEN, URINE Negative (Negative)
--- NOTE | 2020-09-09 22:43 | NUR ---
pt sleeping at this time. no distress.
--- NOTE | 2020-09-10 00:05 | NUR ---
pt sleeping, no acute distress at this time.
--- NOTE | 2020-09-10 00:43 | NUR ---
breathalyzer done and is 0.10,and MD advised.
--- NOTE | 2020-09-10 00:53 | NUR ---
pt called RN to room, and stated that she had been fooling around with her neighbor at the assisted living facility where she lives at and is now worried that she may have contracted something and says she wants her throat swabbed.
--- NOTE | 2020-09-10 01:05 | NUR ---
advised of pts request.
--- NOTE | 2020-09-10 01:15 | NUR ---
Report from [facility]. Pt resting in bed. Sitter in line of site.
--- NOTE | 2020-09-10 02:27 | NUR ---
Sleeping, RR equal and unlabored, sitter in line of site, will continue to monitor.
--- NOTE | 2020-09-10 03:14 | NUR ---
Pt moved to hospital bed.
--- NOTE | 2020-09-10 04:40 | NUR ---
Pt sleeping, RR equal and unlabored. Sitter in line of site, will continue to monitor.
--- NOTE | 2020-09-10 07:15 | NUR ---
RECEIVED REPORT FROM EVELYN RUIZ. CARE ASSUMED. PT ON HOSPITAL BED, RESTING WITH EYES CLOSED, RESP REGULAR AND UNLABORED, EQUAL CHEST RISE, NAD NOTED. IN MONITORED ROOM AND SITTER AT DOOR FOR CONTINUOUS SAFETY OBSERVATION. GARAGE DOORS DOWN FOR SAFETY. ALL BELONGINGS REMAIN LOCKED IN CABINET FOR SAFETY. PT NEEDS TO BE RE-BREATHALYZED, WILL COMPLETE WHEN PT WAKES UP, WELL VITALS AND ASSESSMENT. WILL CONTINUE TO MONITOR.
--- NOTE | 2020-09-10 07:45 | NUR ---
Pt rebreathelized at this time and vitals taken. BA 0.000.
--- NOTE | 2020-09-10 08:16 | NUR ---
PT UP AND AMBULATORY TO RESTROOM WITH STEADY GAIT. NAD NOTED. RESTING COMFORTABLY ON HOSPITAL BED. BREAKFAST TRAY REQUESTED. DENIES ANY PAIN. ALL NEEDS MET AND ADDRESSED AT THIS TIME. DECLINES OFFER FOR SHOWER AND BED LINEN CHANGE AT THIS TIME. SITTER REMAINS AT DOOR FOR CONTINUOUS SAFETY OBSERVATION. ROOM SECURED, SAFE ENVIRONMENT PROVIDED. VSS. PT AWAITING PSYCH EVAL. DENIES SI/HI AT THIS TIME "I JUST HAD TOO MUCH TO DRINK LAST NIGHT I THINK." FALL PRECAUTIONS IN PLACE
--- NOTE | 2020-09-10 08:42 | NUR ---
BREAKFAST TRAY PROVIDED, EATING AND DRINKING WITHOUT ANY DIFFICULTIES. TOELRATING PO WELL. SITTER AT DOOR FOR CONTINUOUS SAFETY OBSERVATION.
--- NOTE | 2020-09-10 09:12 | NUR ---
RESTING COMFORTABLY WITH EYES CLOSED, RESP REGULAR AND UNALBORED. FINISHED BREAKFAST TRAY. DENIES NEED TO USE RESTROOM. REMAINS COOPERATIVE. SITTER AT DOOR FOR CONT. SAFETY OBS. REFRESHMENTS PROVIDED PER REQUEST, TOLERATING PO WELL. PT CONT AWAITING COMMUNITY PLACEMENT. THROUGHPUT SARA CANNON WORKING ON ARRANGEMENTS.
--- NOTE | 2020-09-10 10:04 | NUR ---
PT RESTING WITH EYES CLOSED, RESP REGULAR AND UNLABORED, EQUAL CHEST RISE, NAD NOTED. SITTER AT DOOR FOR CONT SAFETY OBSERVATION. FALL PRECAUTIONS IN PLACE.
--- NOTE | 2020-09-10 11:01 | NUR ---
PER THROUGHPUT SARA CANNON [facility] TO TAKE PT. COVID SWAB COLLECTED AND WALKED TO LAB PER [facility] PROTOCOL AND ERP REQUEST. PT UP AND AMBULATORY TO PHONE, BACK TO BED, RESTING IN POSITION OF COMFORT ON HOSPITAL BED. DENIED NEED TO USE RESTROOM. LUNCH MEAL REQUESTED. SITTER AT DOOR FOR CONTINUOUS SAFETY OBSERVATION. FALL PRECAUTIONS IN PLACE.
--- NOTE | 2020-09-10 11:19 | NUR ---
LAB CALLED REGARDING COVID SWAB COLLECTED AT 1050 THAT WAS WALKED TO LAB. SPOKE WITH KANDI AND JORGE, SWAB NEGATIVE PER LAB, THROUGHPUT SARA CANNON NOTIFIED
--- NOTE | 2020-09-10 12:28 | NUR ---
PT PROVIDED MEAL TRAY, EATING AND DRINKING WITHOUT ANY DIFFICULTY. AMBULATORY TO RESTROOM WITH STEADY GAIT. SITTER AT DOOR FOR CONT SAFETY OBSERVATION. ROOM 381-1 RECEIVED, ATTEMPT X1 TO CALL FLOOR SARA ROBISON AT THIS TIME.
--- NOTE | 2020-09-10 12:33 | NUR ---
REPORT TO FLOOR RN RICKI AT THIS TIME. PT READY FOR TRANSPORT.
[2020-09-10 12:36] VITALS: BP 134/75
== END 2020-09-11 19:10 | disposition other institution (70) ==
LOC: ED 20:03
DX: R45.851 Suicidal ideations (principal); Z20.822 Contact with and (suspected) exposure to COVID-19; F10.120 Alcohol abuse with intoxication, uncomplicated; I10 Essential (primary) hypertension; Z90.89 Acquired absence of other organs; Z90.722 Acquired absence of ovaries, bilateral; Y90.0 Blood alcohol level of less than 20 mg/100 ml
CPT/HCPCS: 36415; 80053; 80299; 80307; 80320; 80329; 85025; 87426; 99284; G0480

== ENCOUNTER 2020-09-10 11:53 | Inpatient (IN) | payer MEDICAID ==
[~2020-09-10] VITALS: Ht 175.3 cm; Wt 100.0 kg
[2020-09-10] MEDS ORDERED: DOCUSATE 100 MG CAPSULE PO PRN (12:30)
[2020-09-10] MEDS ORDERED: BISACODYL 10 MG SUPP PR PRN (12:30)
[2020-09-10] MEDS ORDERED: POLYETHYLENE GLYCOL 17 GM PACKET PO PRN (12:30)
[2020-09-10 12:41] VITALS: BP 145/79
[2020-09-10] MEDS ORDERED: NICOTINE 14MG/24 HR PATCH.TD24 TD SCH (15:00)
[2020-09-10] MEDS: ACETAMINOPHEN 325 MG TABLET PO PRN ×2 (15:00→20:53)
[2020-09-10] MEDS ORDERED: ACETAMINOPHEN 325 MG TABLET PO PRN (18:00)
[2020-09-10] MEDS: IBUPROFEN 200 MG TABLET PO PRN (18:21)
[2020-09-10 19:30] VITALS: BP 138/92
[2020-09-10] MEDS: AMOXICILLIN/CLAV 875-125MG TABLET PO SCH (20:53)
[2020-09-10 21:09] LABS: MICROSCOPIC AUTO
[2020-09-11] MEDS: OMEPRAZOLE 20 MG CAPSULE.DR PO SCH (05:42)
[2020-09-11] MEDS: ACETAMINOPHEN 325 MG TABLET PO PRN ×3 (06:19→22:06)
[2020-09-11] MEDS: THIAMINE 100MG TABLET PO SCH (08:55)
[2020-09-11] MEDS: AMOXICILLIN/CLAV 875-125MG TABLET PO SCH ×2 (08:55→20:21)
[2020-09-11] MEDS: MULTIVITAMIN 1 TABLET PO SCH (08:55)
[2020-09-11] MEDS: FOLIC ACID 1 MG TABLET PO SCH (08:55)
[2020-09-11 11:14] LABS: CHOL/HDL RATIO 2.8; FREE T4 (FREE THYROXINE) 1.01 ng/dL (0.76-1.46); LDL/HDL RATIO 1.4 (0.5-3.0)
[2020-09-11] MEDS: IBUPROFEN 200 MG TABLET PO PRN (12:04)
[2020-09-11] MEDS: PALIPERIDONE 3 MG TAB.ER.24 PO SCH (14:31)
[2020-09-11 19:51] VITALS: BP 135/79
[2020-09-12] MEDS: ACETAMINOPHEN 325 MG TABLET PO PRN ×2 (05:04→20:18)
[2020-09-12] MEDS: OMEPRAZOLE 20 MG CAPSULE.DR PO SCH (05:04)
[2020-09-12 07:39] VITALS: BP 114/80
[2020-09-12] MEDS: AMOXICILLIN/CLAV 875-125MG TABLET PO SCH ×2 (08:42→20:18)
[2020-09-12] MEDS: PALIPERIDONE 3 MG TAB.ER.24 PO SCH (08:42)
[2020-09-12] MEDS: FOLIC ACID 1 MG TABLET PO SCH (08:42)
[2020-09-12] MEDS: THIAMINE 100MG TABLET PO SCH (08:42)
[2020-09-12] MEDS: MULTIVITAMIN 1 TABLET PO SCH (08:42)
[2020-09-12] MEDS: ORAJEL 7GM TUBE MM SCH ×3 (11:00→20:55)
[2020-09-12] MEDS: IBUPROFEN 200 MG TABLET PO PRN (16:24)
[2020-09-12 19:36] VITALS: BP 113/75
[2020-09-13] MEDS: OMEPRAZOLE 20 MG CAPSULE.DR PO SCH (05:58)
[2020-09-13] MEDS: ORAJEL 7GM TUBE MM SCH ×4 (05:59→20:47)
[2020-09-13 07:23] VITALS: BP 107/71
[2020-09-13] MEDS: FOLIC ACID 1 MG TABLET PO SCH (08:30)
[2020-09-13] MEDS: PALIPERIDONE 3 MG TAB.ER.24 PO SCH (08:30)
[2020-09-13] MEDS: MULTIVITAMIN 1 TABLET PO SCH (08:31)
[2020-09-13] MEDS: AMOXICILLIN/CLAV 875-125MG TABLET PO SCH ×2 (08:31→20:43)
[2020-09-13] MEDS: THIAMINE 100MG TABLET PO SCH (08:31)
[2020-09-13] MEDS: ACETAMINOPHEN 325 MG TABLET PO PRN ×2 (09:34→20:43)
[2020-09-13 19:13] VITALS: BP 111/63
[2020-09-14] MEDS: ORAJEL 7GM TUBE MM SCH ×2 (05:56→11:44)
[2020-09-14] MEDS: OMEPRAZOLE 20 MG CAPSULE.DR PO SCH (05:56)
[2020-09-14 07:45] VITALS: BP 108/73
[2020-09-14] MEDS: FOLIC ACID 1 MG TABLET PO SCH (08:40)
[2020-09-14] MEDS: MULTIVITAMIN 1 TABLET PO SCH (08:40)
[2020-09-14] MEDS: THIAMINE 100MG TABLET PO SCH (08:40)
[2020-09-14] MEDS: PALIPERIDONE 3 MG TAB.ER.24 PO SCH (08:40)
[2020-09-14] MEDS: AMOXICILLIN/CLAV 875-125MG TABLET PO SCH (08:40)
== END 2020-09-14 12:10 | disposition home or self-care (01) | DRG 750 ==
LOC: 3E 12:59
PROVIDERS: ADMIT Psychiatry & Neurology Psychosomatic Medicine; ATTEND Psychiatry & Neurology Psychosomatic Medicine
DX: F25.0 Schizoaffective disorder, bipolar type (principal); R45.851 Suicidal ideations; F17.210 Nicotine dependence, cigarettes, uncomplicated; F10.220 Alcohol dependence with intoxication, uncomplicated; Y90.1 Blood alcohol level of 20-39 mg/100 ml; K59.00 Constipation, unspecified; K21.9 Gastro-esophageal reflux disease without esophagitis; Z87.442 Personal history of urinary calculi; Z83.49 Family history of other endocrine, nutritional and metabolic diseases; Z82.5 Family history of asthma and other chronic lower respiratory diseases; Z81.8 Family history of other mental and behavioral disorders; Z90.89 Acquired absence of other organs; Z90.722 Acquired absence of ovaries, bilateral; Z79.899 Other long term (current) drug therapy
CPT/HCPCS: 36415; 71045; 80061; 81001; 82140; 84439; 84443; 87081; 87086; 87880; 93005

== ENCOUNTER 2020-11-28 23:41 | Emergency (ER) | payer MEDICAID ==
[~2020-11-28] VITALS: Ht 185.4 cm; Wt 116.1 kg
[~2020-11-28 23:41] MED LIST changes: +METH-640 PO; -METH750T2 PO
[2020-11-28 23:43] VITALS: BP 118/75
--- NOTE | 2020-11-28 23:58 | NUR ---
pt bib caregiver from long term she lives in. States c//o "I AM MIXING PSYCHOTIC MEDS WITH ALCOHOL" STATES SHE GOT THE INVEGA SHOT TODAY AND WANTS TO GO TO [facility]. PT REPORTS CONSUMING 1.5 PINTS. Caregiver adn pt went by [facility] jj morse they stated they had no available beds but recommended pt comes here. pt changed into gown in room, belongings placed in bags, caregiver at bs. pt placed on spo2/bp monitoring at this time time, wctm. bed in lowest, call light on lap.
[2020-11-29] MEDS ORDERED: PALI3TAB11 PO (00:20)
[2020-11-29 00:32] LABS: BASOPHILS % (AUTO) 1 % (0-1); EOSINOPHILS % (AUTO) 1 % (1-7); LYMPHOCYTES % (AUTO) 26 % (22-44); MEAN CORPUSCULAR HEMOGLOBIN 35.1 pg (27.0-34.8); MEAN CORPUSCULAR HGB CONC 34.6 g/dL (32.4-35.8); MEAN PLATELET VOLUME 7.5 fL (7.4-10.4); MONOCYTES % (AUTO) 4 % (2-9); NEUTROPHILS % (AUTO) 69 % (42-75); PLATELET COUNT 341 x10^3/uL (130-400); RED BLOOD COUNT 4.05 x10^6/uL (3.82-5.3); RED CELL DISTRIBUTION WIDTH 12.9 % (9.6-15.2)
[2020-11-29 00:33] LABS: MD NO
[2020-11-29 00:35] LABS: ALBUMIN 3.3 g/dL (3.4-5.0); ANION GAP 10 mmol/L (5-15); CALCIUM 8.4 mg/dL (8.5-10.1); CHLORIDE 109 mmol/L (98-107); CREATININE 0.64 mg/dL (0.55-1.02)
[2020-11-29 00:38] LABS: MICROSCOPIC AUTO
[2020-11-29 00:48] LABS: AMPHETAMINE SCREEN, URINE Negative (Negative); BARBITURATE SCREEN, URINE Negative (Negative); BENZODIAZEPINE SCREEN, URINE Negative (Negative); CANNABINOID SCREEN, URINE Negative (Negative); COCAINE SCREEN, URINE Negative (Negative); METHADONE SCREEN, URINE Negative (Negative); OPIATE SCREEN, URINE Negative (Negative)
--- NOTE | 2020-11-29 01:29 | NUR ---
pt resting on gurney, nad, appears comfortable, asking when dispo will be, chart just put up for recheck, grant.
--- NOTE | 2020-11-29 01:57 | NUR ---
PT A/OX4 GIVEN TAXI VOUCHER TO HOME ADDRESS, NO FURTHER QUESTIONS AT THIS TIME. PT EDUCATED THAT [employer] WILL TAKE HER HOME BUT NOT TO THE [employer] TO BUY "SMOKES". PT AMB TO PR WITH STEADY GAIT
== END 2020-11-29 01:59 | disposition home or self-care (01) ==
LOC: ED 23:55
DX: F10.129 Alcohol abuse with intoxication, unspecified (principal); F25.9 Schizoaffective disorder, unspecified; Y90.0 Blood alcohol level of less than 20 mg/100 ml; I10 Essential (primary) hypertension
CPT/HCPCS: 36415; 80048; 80143; 80179; 80307; 80320; 81001; 82040; 85025; 87086; 99283; G0480

== ENCOUNTER 2021-04-15 11:02 | Inpatient (IN) | payer MEDICAID ==
[~2021-04-15] VITALS: Ht 185.4 cm; Wt 116.3 kg
[~2021-04-15 11:02] MED LIST changes: +OLAN10TA69 PO; -OLAN10TA9 PO; +PALI3TAB11 PO
[2021-04-15] MEDS ORDERED: ONDANSETRON ODT 4 MG PO PRN (11:30)
[2021-04-15] MEDS ORDERED: BISACODYL 10 MG SUPP PR PRN (11:30)
[2021-04-15] MEDS ORDERED: POLYETHYLENE GLYCOL 17 GM PACKET PO PRN (11:30)
[2021-04-15] MEDS ORDERED: DOCUSATE 100 MG CAPSULE PO PRN (11:30)
[2021-04-15] MEDS ORDERED: DIAZEPAM 10 MG TABLET PO PRN (11:30)
[2021-04-15] MEDS ORDERED: NICOTINE 14MG/24 HR PATCH.TD24 TD SCH (11:30)
[2021-04-15] MEDS ORDERED: DIAZEPAM 10 MG TABLET PO SCH (11:30)
[2021-04-15] MEDS ORDERED: PLEASE ENTER HEIGHT AND WEIGHT MC SCH ×2 (13:00→13:30)
[2021-04-15 14:00] VITALS: BP 159/91
[2021-04-15] MEDS: DIAZEPAM 10 MG TABLET PO SCH ×2 (15:56→20:04)
[2021-04-15] MEDS: PALIPERIDONE 3 MG TAB.ER.24 PO SCH (15:56)
[2021-04-15 19:26] VITALS: BP 146/84
[2021-04-15] MEDS: LORazepam 1MG TABLET PO PRN (21:05)
[2021-04-16] MEDS: DIAZEPAM 10 MG TABLET PO SCH ×3 (04:18→21:59)
[2021-04-16] MEDS ORDERED: DIAZEPAM 10 MG TABLET PO SCH (06:00)
[2021-04-16 06:20] LABS: CHOL/HDL RATIO 3.4; LDL/HDL RATIO 1.8 (0.5-3.0)
[2021-04-16 07:30] VITALS: BP 150/85
[2021-04-16] MEDS: LORazepam 1MG TABLET PO PRN (07:46)
[2021-04-16] MEDS: PALIPERIDONE 3 MG TAB.ER.24 PO SCH (09:59)
[2021-04-16 11:51] LABS: MICROSCOPIC NOT IND
[2021-04-16] MEDS: ACAMPROSATE 333 MG TABLET.DR PO SCH ×3 (16:00→22:00)
[2021-04-16 19:23] VITALS: BP 150/88
[2021-04-17 07:27] VITALS: BP 117/76
[2021-04-17] MEDS: ACETAMINOPHEN 325 MG TABLET PO PRN ×3 (07:27→18:37)
[2021-04-17] MEDS: ACAMPROSATE 333 MG TABLET.DR PO SCH ×3 (08:23→21:00)
[2021-04-17] MEDS: PALIPERIDONE 3 MG TAB.ER.24 PO SCH (08:24)
[2021-04-17 19:28] VITALS: BP 121/79
[2021-04-18] MEDS: ACETAMINOPHEN 325 MG TABLET PO PRN ×2 (00:19→18:14)
[2021-04-18 07:40] VITALS: BP 117/73
[2021-04-18] MEDS: ACAMPROSATE 333 MG TABLET.DR PO SCH ×3 (08:25→20:13)
[2021-04-18] MEDS: PALIPERIDONE 3 MG TAB.ER.24 PO SCH (08:25)
[2021-04-18 19:43] VITALS: BP 114/77
[2021-04-19 07:18] VITALS: BP 112/75
[2021-04-19] MEDS: ACAMPROSATE 333 MG TABLET.DR PO SCH ×3 (09:00→21:00)
[2021-04-19] MEDS: PALIPERIDONE 3 MG TAB.ER.24 PO SCH (09:06)
[2021-04-19] MEDS ORDERED: PALI3TAB11 PO (15:10)
[2021-04-19 19:26] VITALS: BP 124/82
[2021-04-19] MEDS: ACETAMINOPHEN 325 MG TABLET PO PRN (19:54)
[2021-04-20 07:58] VITALS: BP 104/68
[2021-04-20] MEDS: PALIPERIDONE 3 MG TAB.ER.24 PO SCH (08:32)
[2021-04-20] MEDS: ACAMPROSATE 333 MG TABLET.DR PO SCH (08:34)
== END 2021-04-20 13:03 | disposition home or self-care (01) | DRG 885 ==
LOC: 3E 12:36
PROVIDERS: ADMIT Psychiatry & Neurology Psychosomatic Medicine; ATTEND Psychiatry & Neurology Psychosomatic Medicine
DX: F25.1 Schizoaffective disorder, depressive type (principal); F10.239 Alcohol dependence with withdrawal, unspecified; R45.851 Suicidal ideations; F17.210 Nicotine dependence, cigarettes, uncomplicated; I10 Essential (primary) hypertension; R42 Dizziness and giddiness; Z20.822 Contact with and (suspected) exposure to COVID-19
CPT/HCPCS: 36415; 71045; 80053; 80061; 80299; 80307; 80320; 80329; 81003; 84439; 84443; 84481; 85025; 87426; 93005; 99285; G0480

== ENCOUNTER 2021-04-20 22:47 | Inpatient (IN) | payer MEDICAID ==
[~2021-04-20] VITALS: Ht 185.4 cm; Wt 115.0 kg
--- NOTE | 2021-04-20 23:23 | NUR ---
ERP TO BEDSIDE FOR EVAL AND POC
--- NOTE | 2021-04-20 23:40 | NUR ---
TECH AT BEDSIDE FOR EKG, PT PLACED ON 2LNC PER DR FONTANEZ
[2021-04-20 23:58] LABS: BASOPHILS % (AUTO) 2 % (0-1); EOSINOPHILS % (AUTO) 0 % (1-7); LYMPHOCYTES % (AUTO) 15 % (22-44); MEAN CORPUSCULAR HEMOGLOBIN 34.5 pg (27.0-34.8); MEAN CORPUSCULAR HGB CONC 34.7 g/dL (32.4-35.8); MEAN PLATELET VOLUME 7.6 fL (7.4-10.4); MONOCYTES % (AUTO) 11 % (2-9); NEUTROPHILS % (AUTO) 73 % (42-75); PLATELET COUNT 201 x10^3/uL (130-400); RED BLOOD COUNT 4.34 x10^6/uL (3.82-5.3); RED CELL DISTRIBUTION WIDTH 13.2 % (9.6-15.2)
[2021-04-21] MEDS ORDERED: AZITHROMYCIN 500 MG in SODIUM CHLORIDE 0.9% 250 ML IV ONE
[2021-04-21] MEDS ORDERED: CEFTRIAXONE 1,000 MG in DEXTROSE 5% 50 ML IVPB ONE
[2021-04-21 00:13] LABS: ALBUMIN 3.2 g/dL (3.4-5.0); ANION GAP 12 mmol/L (5-15); CALCIUM 8.4 mg/dL (8.5-10.1); CHLORIDE 101 mmol/L (98-107); CREATININE 0.66 mg/dL (0.55-1.02)
[2021-04-21 00:17] LABS: TROPONIN I < 0.015 ng/mL (0.000-0.045)
--- NOTE | 2021-04-21 01:18 | NUR ---
dr cary order for no iv fluids at this time
--- NOTE | 2021-04-21 01:18 | NUR ---
smh at bedside
[2021-04-21] MEDS ORDERED: POLYETHYLENE GLYCOL 17 GM PACKET PO PRN (01:30)
[2021-04-21] MEDS ORDERED: ONDANSETRON 2MG/ML, 2ML IVPush PRN (01:30)
[2021-04-21] MEDS ORDERED: ACETAMINOPHEN 325 MG TABLET PO PRN (01:30)
[2021-04-21] MEDS: ENOXAPARIN 40 MG/0.4 ML SQ SCH ×2 (01:30→03:56)
[2021-04-21] MEDS ORDERED: LABETALOL 5MG/ML, 20ML IVPush PRN (01:30)
[2021-04-21] MEDS ORDERED: MELATONIN 5 MG TABLET PO PRN (01:30)
--- NOTE | 2021-04-21 01:36 | NUR ---
report given to mitchell crump
--- NOTE | 2021-04-21 02:44 | NUR ---
REPORT GIVEN TO TAZ RUIZ
--- NOTE | 2021-04-21 03:03 | NUR ---
report given to evelyn crump
[2021-04-21 03:57] VITALS: BP 110/68
[2021-04-21 06:46] VITALS: BP 109/66
[2021-04-21 06:54] VITALS: BP 138/83
[2021-04-21] MEDS ORDERED: AZITHROMYCIN 500 MG TABLET PO SCH (09:00)
[2021-04-21 09:33] LABS: ANION GAP 8 mmol/L (5-15); CALCIUM 7.6 mg/dL (8.5-10.1); CHLORIDE 105 mmol/L (98-107); CREATININE 0.59 mg/dL (0.55-1.02)
[2021-04-21 09:52] LABS: BASOPHILS % (AUTO) 1 % (0-1); EOSINOPHILS % (AUTO) 0 % (1-7); LYMPHOCYTES % (AUTO) 32 % (22-44); MEAN CORPUSCULAR HEMOGLOBIN 34.9 pg (27.0-34.8); MEAN CORPUSCULAR HGB CONC 34.9 g/dL (32.4-35.8); MEAN PLATELET VOLUME 7.9 fL (7.4-10.4); MONOCYTES % (AUTO) 12 % (2-9); NEUTROPHILS % (AUTO) 56 % (42-75); PLATELET COUNT 198 x10^3/uL (130-400); RED BLOOD COUNT 4.15 x10^6/uL (3.82-5.3); RED CELL DISTRIBUTION WIDTH 13.2 % (9.6-15.2)
[2021-04-21 13:50] VITALS: BP 95/58
[2021-04-21 19:13] VITALS: BP 108/70
[2021-04-22 02:54] VITALS: BP 102/60
[2021-04-22] MEDS: ENOXAPARIN 40 MG/0.4 ML SQ SCH (02:54)
[2021-04-22] MEDS ORDERED: CEFTRIAXONE 2 GM in DEXTROSE 5% 50 ML IVPB SCH (06:00)
[2021-04-22 07:20] LABS: ALBUMIN 2.7 g/dL (3.4-5.0); ANION GAP 6 mmol/L (5-15); CHLORIDE 101 mmol/L (98-107)
[2021-04-22 07:23] LABS: ALANINE AMINOTRANSFERASE 46 U/L (12-78); ALKALINE PHOSPHATASE 64 U/L (45-117); BILIRUBIN,TOTAL 0.2 mg/dL (0.2-1.0); CREATININE 0.49 mg/dL (0.55-1.02); TOTAL PROTEIN 6.7 g/dL (6.4-8.2)
[2021-04-22] MEDS ORDERED: REMDESIVIR 200 MG in SODIUM CHLORIDE 0.9% 250 ML IVPB ONE (08:00)
[2021-04-22 08:19] VITALS: BP 96/62
[2021-04-22 08:28] LABS: BASOPHILS % (AUTO) 1 % (0-1); EOSINOPHILS % (AUTO) 0 % (1-7); LYMPHOCYTES % (AUTO) 28 % (22-44); MEAN CORPUSCULAR HEMOGLOBIN 34.1 pg (27.0-34.8); MEAN CORPUSCULAR HGB CONC 34.3 g/dL (32.4-35.8); MEAN PLATELET VOLUME 8.2 fL (7.4-10.4); MONOCYTES % (AUTO) 11 % (2-9); NEUTROPHILS % (AUTO) 60 % (42-75); PLATELET COUNT 200 x10^3/uL (130-400); RED BLOOD COUNT 4.16 x10^6/uL (3.82-5.3)
[2021-04-22] MEDS: DEXAMETHASONE 4 MG TABLET PO SCH (09:26)
[2021-04-22] MEDS: SODIUM CHLORIDE 0.9% 1,000 ML IV SCH (12:31)
[2021-04-22 13:12] VITALS: BP 108/72
[2021-04-22 20:32] VITALS: BP 103/69
[2021-04-23] MEDS: SODIUM CHLORIDE 0.9% 1,000 ML IV SCH (00:07)
[2021-04-23] MEDS: ENOXAPARIN 40 MG/0.4 ML SQ SCH (01:16)
[2021-04-23 01:31] VITALS: BP 111/77
[2021-04-23 05:21] LABS: ALBUMIN 2.6 g/dL (3.4-5.0); ANION GAP 2 mmol/L (5-15); CALCIUM 7.7 mg/dL (8.5-10.1); CHLORIDE 108 mmol/L (98-107)
[2021-04-23 05:25] LABS: ALANINE AMINOTRANSFERASE 34 U/L (12-78); ALKALINE PHOSPHATASE 59 U/L (45-117); BILIRUBIN,TOTAL 0.3 mg/dL (0.2-1.0); CREATININE 0.36 mg/dL (0.55-1.02); TOTAL PROTEIN 6.3 g/dL (6.4-8.2)
[2021-04-23] MEDS ORDERED: POTASSIUM CHLORIDE 20 MEQ TAB.ER.PRT PO ONE (07:30)
[2021-04-23 07:56] VITALS: BP 124/73
[2021-04-23] MEDS: DEXAMETHASONE 4 MG TABLET PO SCH (11:36)
[2021-04-23] MEDS: REMDESIVIR 100 MG in SODIUM CHLORIDE 0.9% 250 ML IVPB SCH (12:29)
[2021-04-23 13:52] VITALS: BP 115/74
[2021-04-23 20:03] VITALS: BP 121/79
[2021-04-24] MEDS: ENOXAPARIN 40 MG/0.4 ML SQ SCH ×2 (01:12→20:09)
[2021-04-24 06:44] LABS: ALANINE AMINOTRANSFERASE 33 U/L (12-78); ALBUMIN 2.7 g/dL (3.4-5.0); ALKALINE PHOSPHATASE 61 U/L (45-117); BILIRUBIN,TOTAL 0.3 mg/dL (0.2-1.0); CALCIUM 8.5 mg/dL (8.5-10.1); CREATININE 0.37 mg/dL (0.55-1.02); TOTAL PROTEIN 6.6 g/dL (6.4-8.2)
[2021-04-24 06:52] LABS: ANION GAP 7 mmol/L (5-15); CHLORIDE 110 mmol/L (98-107)
[2021-04-24 07:51] VITALS: BP 140/76
[2021-04-24] MEDS: REMDESIVIR 100 MG in SODIUM CHLORIDE 0.9% 250 ML IVPB SCH (09:18)
[2021-04-24] MEDS: ZINC SULFATE 220 MG CAPSULE PO SCH (09:19)
[2021-04-24] MEDS: DEXAMETHASONE 4 MG TABLET PO SCH (09:19)
[2021-04-24] MEDS: ASCORBIC ACID 250 MG TAB PO SCH ×2 (09:34→17:51)
[2021-04-24 12:33] VITALS: BP 150/90
[2021-04-24 19:49] VITALS: BP 125/85
[2021-04-25 01:33] VITALS: BP 124/79
[2021-04-25 05:17] LABS: CHLORIDE 109 mmol/L (98-107)
[2021-04-25 05:24] LABS: ALANINE AMINOTRANSFERASE 37 U/L (12-78); ALBUMIN 2.6 g/dL (3.4-5.0); ALKALINE PHOSPHATASE 62 U/L (45-117); ANION GAP 7 mmol/L (5-15); BILIRUBIN,TOTAL 0.2 mg/dL (0.2-1.0); CALCIUM 8.6 mg/dL (8.5-10.1); CREATININE 0.35 mg/dL (0.55-1.02); TOTAL PROTEIN 6.7 g/dL (6.4-8.2)
[2021-04-25 07:30] VITALS: BP 125/81
[2021-04-25] MEDS: REMDESIVIR 100 MG in SODIUM CHLORIDE 0.9% 250 ML IVPB SCH (08:39)
[2021-04-25] MEDS: ASCORBIC ACID 250 MG TAB PO SCH ×2 (08:40→16:33)
[2021-04-25] MEDS: DEXAMETHASONE 4 MG TABLET PO SCH (08:40)
[2021-04-25] MEDS: ZINC SULFATE 220 MG CAPSULE PO SCH (08:40)
[2021-04-25 15:15] VITALS: BP 135/79
[2021-04-25] MEDS: ENOXAPARIN 40 MG/0.4 ML SQ SCH (20:03)
[2021-04-25 20:42] VITALS: BP 104/9
[2021-04-26 01:46] VITALS: BP 122/83
[2021-04-26 05:25] LABS: CHLORIDE 107 mmol/L (98-107)
[2021-04-26 05:35] LABS: ALANINE AMINOTRANSFERASE 38 U/L (12-78); ALBUMIN 2.8 g/dL (3.4-5.0); ALKALINE PHOSPHATASE 64 U/L (45-117); ANION GAP 7 mmol/L (5-15); BILIRUBIN,TOTAL 0.3 mg/dL (0.2-1.0); CALCIUM 8.6 mg/dL (8.5-10.1)
[2021-04-26] MEDS: DEXAMETHASONE 4 MG TABLET PO SCH (07:39)
[2021-04-26] MEDS: ASCORBIC ACID 250 MG TAB PO SCH ×2 (07:39→16:59)
[2021-04-26] MEDS: REMDESIVIR 100 MG in SODIUM CHLORIDE 0.9% 250 ML IVPB SCH (07:39)
[2021-04-26] MEDS: ZINC SULFATE 220 MG CAPSULE PO SCH (07:39)
[2021-04-26 07:45] VITALS: BP 121/80
[2021-04-26] MEDS: PALIPERIDONE 3 MG TAB.ER.24 PO SCH (11:39)
[2021-04-26 14:10] VITALS: BP 127/74
[2021-04-26 19:40] VITALS: BP 117/80
[2021-04-26] MEDS: ENOXAPARIN 40 MG/0.4 ML SQ SCH (22:02)
[2021-04-27 02:15] VITALS: BP 138/76
[2021-04-27 07:54] VITALS: BP 128/79
[2021-04-27] MEDS: ASCORBIC ACID 250 MG TAB PO SCH (08:32)
[2021-04-27] MEDS: PALIPERIDONE 3 MG TAB.ER.24 PO SCH (08:32)
[2021-04-27] MEDS: ZINC SULFATE 220 MG CAPSULE PO SCH (08:32)
[2021-04-27] MEDS: DEXAMETHASONE 4 MG TABLET PO SCH (08:33)
[2021-04-27] MEDS ORDERED: PALI3TAB11 PO (13:03)
[2021-04-27] MEDS ORDERED: DEXA6TAB6 PO (13:03)
[2021-04-27] MEDS ORDERED: ZINC220C8 PO (13:03)
[2021-04-27] MEDS ORDERED: ASCO100018 PO (13:03)
[2021-04-27 13:05] VITALS: BP 121/84
== END 2021-04-27 16:32 | disposition home or self-care (01) | DRG 720 ==
LOC: ED 04-21 00:20 → EDIP 04-21 02:02 → 5SO 04-21 03:33 → 3N 04-23 05:15
PROVIDERS: ADMIT Internal Medicine; ATTEND Internal Medicine
PROC: XW033E5 Introduction of Remdesivir Anti-infective into Peripheral Vein, Percutaneous Approach, New Technology Group 5 (ICD-10-PCS; principal; 2021-04-22)
DX: A41.89 Other specified sepsis (principal); J96.01 Acute respiratory failure with hypoxia; J12.82 Pneumonia due to coronavirus disease 2019; E87.2 Acidosis; F25.9 Schizoaffective disorder, unspecified; E87.6 Hypokalemia; F17.200 Nicotine dependence, unspecified, uncomplicated; F41.1 Generalized anxiety disorder; I10 Essential (primary) hypertension; E66.01 Morbid (severe) obesity due to excess calories; F19.10 Other psychoactive substance abuse, uncomplicated; U07.1 COVID-19; Z78.9 Other specified health status; Z59.0 Homelessness; Z87.11 Personal history of peptic ulcer disease; Z68.34 Body mass index [BMI] 34.0-34.9, adult
CPT/HCPCS: 36415; 71045; 80048; 80053; 80061; 80299; 80307; 80320; 80329; 81003; 82040; 83605; 83735; 83880; 84145; 84439; 84443; 84481; 84484; 85025; 85379; 87040; 87426; 93005; 96365; 99285; G0378; J0456; J0696; J1650; U0005; G0480; J7030; J7050; U0003

== ENCOUNTER 2021-04-27 22:35 | Inpatient (IN) | payer MEDICAID ==
[~2021-04-27] VITALS: Ht 185.4 cm; Wt 117.5 kg
[~2021-04-27 22:35] MED LIST changes: +ASCO100018 PO; +DEXA6TAB6 PO; +ZINC220C8 PO
--- NOTE | 2021-04-27 23:23 | NUR ---
PT TO ER 21. BP 75/31. IV ATTEMPTED 3X, SUCCESSFUL ON 3RD TIME. LABS DRAWN AT THIS TIME.
[2021-04-27] MEDS ORDERED: SODIUM CHLORIDE 0.9% 1,000ML IVBOLUS ONE (23:30)
--- NOTE | 2021-04-27 23:50 | NUR ---
STRAIGHT CATH DONE FOR UA SAMPLE. PT TOLERATED WELL. SAMPLE WALKED TO LAB.
[2021-04-27 23:51] LABS: BASOPHILS % (AUTO) 1 % (0-1); EOSINOPHILS % (AUTO) 0 % (1-7); LYMPHOCYTES % (AUTO) 19 % (22-44); MEAN CORPUSCULAR HEMOGLOBIN 33.8 pg (27.0-34.8); MEAN CORPUSCULAR HGB CONC 33.8 g/dL (32.4-35.8); MEAN PLATELET VOLUME 7.4 fL (7.4-10.4); MONOCYTES % (AUTO) 6 % (2-9); NEUTROPHILS % (AUTO) 75 % (42-75); PLATELET COUNT 494 x10^3/uL (130-400); RED BLOOD COUNT 4.56 x10^6/uL (3.82-5.3); RED CELL DISTRIBUTION WIDTH 13.1 % (9.6-15.2)
[2021-04-28 00:01] LABS: ALBUMIN 3.4 g/dL (3.4-5.0); ANION GAP 15 mmol/L (5-15); CHLORIDE 104 mmol/L (98-107)
[2021-04-28 00:12] LABS: ALANINE AMINOTRANSFERASE 48 U/L (12-78); ALKALINE PHOSPHATASE 71 U/L (45-117); BILIRUBIN,TOTAL 0.2 mg/dL (0.2-1.0); CREATININE 0.99 mg/dL (0.55-1.02); TOTAL PROTEIN 7.9 g/dL (6.4-8.2)
[2021-04-28 00:16] LABS: MICROSCOPIC NOT IND
--- NOTE | 2021-04-28 00:33 | NUR ---
PT TAKEN TO BATHROOM VIA WHEELCHAIR.
[2021-04-28] MEDS ORDERED: POTASSIUM CHLORIDE 40 MEQ in SODIUM CHLORIDE 0.9% 500 ML IV ONE (01:00)
[2021-04-28] MEDS ORDERED: MAGNESIUM SULFATE/D5W 100 ML IVPB ONE (01:00)
[2021-04-28] MEDS ORDERED: LACTATED RINGERS 1,000 ML IVBOLUS ONE (01:00)
[2021-04-28] MEDS ORDERED: MAGNESIUM SULFATE 1 GM/2 ML IVPush ONE (01:00)
[2021-04-28] MEDS ORDERED: LACTATED RINGERS 1,500 ML IV SCH (01:00)
[2021-04-28 01:30] LABS: SALICYLATE LEVEL 2.7 mg/dL (2.8-20.0)
[2021-04-28] MEDS ORDERED: DOXYCYCLINE 100 MG in DEXTROSE 5% 250 ML IV SCH (01:30)
[2021-04-28] MEDS ORDERED: CEFTRIAXONE 1,000 MG in DEXTROSE 5% 50 ML IVPB ONE (01:30)
[2021-04-28] MEDS ORDERED: LORazepam 2 MG/ML, 1ML ONE (02:55)
[2021-04-28] MEDS ORDERED: ACETAMINOPHEN 325 MG TABLET PO PRN (03:00)
[2021-04-28] MEDS ORDERED: MELATONIN 5 MG TABLET PO PRN (03:00)
[2021-04-28] MEDS ORDERED: LORazepam 0.5MG TABLET PO PRN (03:00)
[2021-04-28] MEDS ORDERED: LABETALOL 5MG/ML, 20ML IVPush PRN (03:00)
[2021-04-28] MEDS ORDERED: LORazepam 2 MG/ML, 1ML IV PRN ×2 (03:00)
[2021-04-28] MEDS ORDERED: LORazepam 1MG TABLET PO PRN (03:00)
[2021-04-28] MEDS ORDERED: ONDANSETRON 2MG/ML, 2ML IVPush PRN (03:00)
[2021-04-28] MEDS ORDERED: POLYETHYLENE GLYCOL 17 GM PACKET PO PRN (03:00)
[2021-04-28 05:27] LABS: BASOPHILS % (AUTO) 1 % (0-1); EOSINOPHILS % (AUTO) 0 % (1-7); LYMPHOCYTES % (AUTO) 35 % (22-44); MEAN CORPUSCULAR HEMOGLOBIN 34.4 pg (27.0-34.8); MEAN PLATELET VOLUME 7.3 fL (7.4-10.4); MONOCYTES % (AUTO) 7 % (2-9); NEUTROPHILS % (AUTO) 58 % (42-75); PLATELET COUNT 401 x10^3/uL (130-400); RED BLOOD COUNT 4.29 x10^6/uL (3.82-5.3); RED CELL DISTRIBUTION WIDTH 13.2 % (9.6-15.2)
[2021-04-28 05:37] LABS: ANION GAP 8 mmol/L (5-15); CALCIUM 8.1 mg/dL (8.5-10.1); CHLORIDE 111 mmol/L (98-107)
[2021-04-28] MEDS ORDERED: POTASSIUM CHLORIDE 20 MEQ, MAGNESIUM SULFATE 1 GM, FOLIC ACID 1 MG, THIAMINE 200 MG, MV... IV SCH (06:00)
[2021-04-28 07:31] VITALS: BP 100/62
[2021-04-28] MEDS ORDERED: DOXYCYCLINE 100MG TABLET PO SCH (09:00)
[2021-04-28] MEDS: ENOXAPARIN 40 MG/0.4 ML SQ SCH (10:16)
[2021-04-28 13:07] VITALS: BP 119/75
[2021-04-28] MEDS ORDERED: CEFTRIAXONE 2 GM in DEXTROSE 5% 50 ML IVPB SCH (14:00)
[2021-04-29 01:39] VITALS: BP 135/80
[2021-04-29] MEDS: CEFTRIAXONE 1,000 MG in DEXTROSE 5% 50 ML IVPB SCH ×2 (01:53→13:30)
[2021-04-29] MEDS: AZITHROMYCIN 500 MG in SODIUM CHLORIDE 0.9% 250 ML IV SCH (02:57)
[2021-04-29 09:25] VITALS: BP 125/69
[2021-04-29] MEDS: ENOXAPARIN 40 MG/0.4 ML SQ SCH (10:16)
[2021-04-29 15:27] VITALS: BP 142/77
[2021-04-29 19:40] VITALS: BP 134/85
[2021-04-30] MEDS: CEFTRIAXONE 1,000 MG in DEXTROSE 5% 50 ML IVPB SCH (00:33)
[2021-04-30] MEDS: AZITHROMYCIN 500 MG in SODIUM CHLORIDE 0.9% 250 ML IV SCH (02:13)
[2021-04-30 07:59] VITALS: BP 101/65
[2021-04-30 09:15] LABS: BASOPHILS % (AUTO) 1 % (0-1); EOSINOPHILS % (AUTO) 1 % (1-7); LYMPHOCYTES % (AUTO) 19 % (22-44); MEAN CORPUSCULAR HEMOGLOBIN 34.3 pg (27.0-34.8); MEAN CORPUSCULAR HGB CONC 34.6 g/dL (32.4-35.8); MEAN PLATELET VOLUME 7.3 fL (7.4-10.4); MONOCYTES % (AUTO) 7 % (2-9); NEUTROPHILS % (AUTO) 73 % (42-75); PLATELET COUNT 445 x10^3/uL (130-400); RED BLOOD COUNT 4.37 x10^6/uL (3.82-5.3)
[2021-04-30 09:22] LABS: ANION GAP 7 mmol/L (5-15); CALCIUM 8.7 mg/dL (8.5-10.1); CHLORIDE 106 mmol/L (98-107); CREATININE 0.56 mg/dL (0.55-1.02)
[2021-04-30] MEDS: ENOXAPARIN 40 MG/0.4 ML SQ SCH (10:21)
[2021-04-30] MEDS ORDERED: CEFD300C37 PO (12:49)
[2021-04-30] MEDS ORDERED: AZIT500T PO (12:49)
[2021-04-30 13:45] VITALS: BP 104/65
== END 2021-04-30 15:39 | disposition home or self-care (01) | DRG 720 ==
LOC: ED 04-28 01:55 → EDIP 04-28 02:50 → 3N 04-28 04:34
PROVIDERS: ADMIT Internal Medicine; ATTEND Internal Medicine
DX: A41.89 Other specified sepsis (principal); J96.01 Acute respiratory failure with hypoxia; J12.82 Pneumonia due to coronavirus disease 2019; E87.2 Acidosis; F25.9 Schizoaffective disorder, unspecified; E87.6 Hypokalemia; I10 Essential (primary) hypertension; F41.1 Generalized anxiety disorder; F19.10 Other psychoactive substance abuse, uncomplicated; F17.200 Nicotine dependence, unspecified, uncomplicated; F10.229 Alcohol dependence with intoxication, unspecified; U07.1 COVID-19; Z91.19 Patient's noncompliance with other medical treatment and regimen; Z59.0 Homelessness
CPT/HCPCS: 36415; 84145; 96360; 96361; 99291; J7121; 71045; 80048; 80053; 80320; 80329; 81003; 83605; 83735; 84100; 84443; 85025; 87040; 93005; G0378; J0456; J0696; J1650; J3411; J3475; J3480; J7060; G0480; J2060; J7030; J7040; J7050; J7120

== ENCOUNTER 2021-04-30 21:51 | Emergency (ER) | payer MEDICAID ==
[~2021-04-30] VITALS: Ht 185.4 cm; Wt 120.0 kg
[~2021-04-30 21:51] MED LIST changes: +AZIT500T PO; +CEFD300C37 PO
[2021-04-30] MEDS ORDERED: SODIUM CHLORIDE 0.9% 1,000ML IVBOLUS ONE (22:00)
--- NOTE | 2021-04-30 22:17 | NUR ---
Pt brought in by EMS for c/o general malaise, not feeling well. States that "I feel like I am going to ." Per EMS, pt was hypotensive en route w/ SBP <90. Pt alert and oriented x4, GCS 15. Hx of paranoid schizophrenia compliant with meds (Invega). Per EMS, pt was recently admitted for psych and for pneumonia. States she tested positive for COVID on the 20 of April. pt not hypoxic, not febrile, however, tachycardic Sinus Tach on Monitor, hypotensive SBP <90. 2IV's established upon arrival. 20G R hand, 20G L hand. Pt tolerated well. 1L NSS running at this time. Pt mentating well. Asking for PO and for her pink bunny. I gave her personal belongings, reminded her of current NPO status. Blood cx drawn and at bedside, other labs sent at this time. Pt denies further needs. Call roberts and personal items within reach. Pt on continuous hospital monitor, pulse ox, and BP.
--- NOTE | 2021-04-30 22:22 | NUR ---
PATIENT REQUESTING SODA FROM PERSONAL BAG. SHE WAS TOLD SHE CAN'T HAVE HER SODA BUT CAN HAVE SPRITE FROM OUR KITCHEN. PATIENT WAS COOPERATIVE WITH THE COMPROMISE.
[2021-04-30 22:26] LABS: BASOPHILS % (AUTO) 1 % (0-1); EOSINOPHILS % (AUTO) 0 % (1-7); LYMPHOCYTES % (AUTO) 16 % (22-44); MEAN CORPUSCULAR HGB CONC 33.9 g/dL (32.4-35.8); MEAN PLATELET VOLUME 7.6 fL (7.4-10.4); MONOCYTES % (AUTO) 6 % (2-9); NEUTROPHILS % (AUTO) 78 % (42-75); PLATELET COUNT 511 x10^3/uL (130-400); RED BLOOD COUNT 4.59 x10^6/uL (3.82-5.3); RED CELL DISTRIBUTION WIDTH 13.2 % (9.6-15.2)
[2021-04-30 22:35] LABS: ALANINE AMINOTRANSFERASE 40 U/L (12-78); ALBUMIN 3.2 g/dL (3.4-5.0); ANION GAP 16 mmol/L (5-15); CALCIUM 8.7 mg/dL (8.5-10.1); CHLORIDE 100 mmol/L (98-107); CREATININE 1.14 mg/dL (0.55-1.02)
[2021-04-30 22:37] LABS: ALKALINE PHOSPHATASE 81 U/L (45-117); BILIRUBIN,TOTAL 0.2 mg/dL (0.2-1.0); TOTAL PROTEIN 7.6 g/dL (6.4-8.2)
--- NOTE | 2021-04-30 22:39 | NUR ---
PATIENT WAS FOUND DRINKING OWN SODA FROM HER BAG. SHE WAS INFORMED SHE CAN'T DRINK THAT ONE BUT STAFF CAN GIVE HER SODA FROM THE KITCHEN. BELONGINGS MOVED TO COUNTER.
[2021-04-30 23:14] VITALS: BP 100/56
--- NOTE | 2021-04-30 23:14 | NUR ---
PATIENT SITTING ON GURNEY TALKING ON THE PHONE WITH HER MOTHER. PATIENT REPEATING TO MOTHER "I FEEL LIKE I'M DYING". VSS. WILL CONTINUE TO MONITOR.
--- NOTE | 2021-04-30 23:24 | NUR ---
PATIENT AMBULATED WITH STEADY GAIT, NAD DURING AMBULATION. PATIENT REPEATING "I THINK I'M GOING TO " AND NEEDING FREQUENT REASURANCE. PATIENT CONNECTED BACK TO MONITOR, VSS, NAD AT THIS TIME. MD NOTIFIED OF ROAD TEST.
--- NOTE | 2021-04-30 23:47 | NUR ---
Sudeep given discharge instructions and they have confirmed that they understand the instructions. Patient ambulatory with steady gait. NAD, all questions answered appropriately, denies additional needs at this time. No personal belongings left in room after discharge.
== END 2021-04-30 23:49 | disposition home or self-care (01) ==
LOC: ED 22:21
DX: R10.84 Generalized abdominal pain (principal); F10.129 Alcohol abuse with intoxication, unspecified; F17.210 Nicotine dependence, cigarettes, uncomplicated; R00.0 Tachycardia, unspecified; I10 Essential (primary) hypertension; Y90.0 Blood alcohol level of less than 20 mg/100 ml; Z90.89 Acquired absence of other organs; Z90.710 Acquired absence of both cervix and uterus
CPT/HCPCS: 36415; 80053; 80320; 83690; 85025; 93005; 96360; 99284; 99406; J7030; G0480

== ENCOUNTER 2021-05-01 19:34 | Emergency (ER) | payer MEDICAID ==
[~2021-05-01] VITALS: Ht 185.4 cm; Wt 102.7 kg
--- NOTE | 2021-05-01 19:47 | NUR ---
[facility] REPORTS PATIENT COMPLAINS OF CHEST PAIN, RESOLVED PRIOR TO ARRIVAL. PATIENT STATES "I THINK I'M GOING TO ". [facility]O AMBULATES WITH A STEADY GAIT TO [facility].
--- NOTE | 2021-05-01 20:03 | NUR ---
Patient is resting comfortably in bed. Bed in lowest, rails engaged, call light on lap. WCTM. PATIENT IS RESTING ON GURNEY, REQUESTING "THE NOISE TO STOP", NAD AT THIS TIME.
[2021-05-01 20:32] LABS: BASOPHILS % (AUTO) 0 % (0-1); EOSINOPHILS % (AUTO) 1 % (1-7); LYMPHOCYTES % (AUTO) 19 % (22-44); MEAN CORPUSCULAR HEMOGLOBIN 33.7 pg (27.0-34.8); MEAN CORPUSCULAR HGB CONC 33.5 g/dL (32.4-35.8); MONOCYTES % (AUTO) 7 % (2-9); NEUTROPHILS % (AUTO) 74 % (42-75); PLATELET COUNT 452 x10^3/uL (130-400); RED BLOOD COUNT 4.13 x10^6/uL (3.82-5.3); RED CELL DISTRIBUTION WIDTH 13.1 % (9.6-15.2)
[2021-05-01 20:35] LABS: ALBUMIN 2.8 g/dL (3.4-5.0); ANION GAP 12 mmol/L (5-15); CALCIUM 8.3 mg/dL (8.5-10.1); CHLORIDE 102 mmol/L (98-107)
[2021-05-01 20:44] VITALS: BP 102/63
[2021-05-01] MEDS ORDERED: POTASSIUM CHLORIDE 20 MEQ TAB.ER.PRT ONE (21:22)
[2021-05-01] MEDS ORDERED: POTASSIUM CHLORIDE 20 MEQ TAB.ER.PRT PO ONE (21:30)
--- NOTE | 2021-05-01 21:47 | NUR ---
Patient given discharge instructions and they have confirmed that they understand the instructions. Patient ambulatory with steady gait. NAD, all questions answered appropriately, denies additional needs at this time. No personal belongings left in room after discharge.
== END 2021-05-01 21:49 | disposition home or self-care (01) ==
LOC: ED 21:22
DX: F10.220 Alcohol dependence with intoxication, uncomplicated (principal); E87.6 Hypokalemia; R00.0 Tachycardia, unspecified; R41.82 Altered mental status, unspecified; I10 Essential (primary) hypertension; F17.200 Nicotine dependence, unspecified, uncomplicated; Z90.710 Acquired absence of both cervix and uterus; Y90.0 Blood alcohol level of less than 20 mg/100 ml; Z90.89 Acquired absence of other organs
CPT/HCPCS: 36415; 80048; 80320; 82040; 85025; 99283; G0480

== ENCOUNTER 2021-05-06 14:34 | Emergency (ER) | payer MEDICAID ==
[~2021-05-06] VITALS: Ht 185.4 cm; Wt 113.5 kg
--- NOTE | 2021-05-06 14:57 | NUR ---
ASSUMED CARE OF PATIENT. PATIENT REPORTS SHE TESTED POSITIVE FOR COVID ON THE . PT C/O SOB AND A SORE THROAT. PT ALSO REPORTS SYNCOPE TODAY. VS STABLE. STOVE CLEANER ON. SINUS TACH NOTED. CALL LIGHT IN PLACE. WILL CONTINUE TO MONITOR.
[2021-05-06] MEDS ORDERED: SODIUM CHLORIDE 0.9% 1,000ML IVBOLUS ONE (15:00)
[2021-05-06 15:43] LABS: BASOPHILS % (AUTO) 1 % (0-1); EOSINOPHILS % (AUTO) 0 % (1-7); LYMPHOCYTES % (AUTO) 14 % (22-44); MEAN CORPUSCULAR HEMOGLOBIN 33.8 pg (27.0-34.8); MEAN CORPUSCULAR HGB CONC 34.2 g/dL (32.4-35.8); MEAN PLATELET VOLUME 7.1 fL (7.4-10.4); MONOCYTES % (AUTO) 4 % (2-9); NEUTROPHILS % (AUTO) 81 % (42-75); PLATELET COUNT 391 x10^3/uL (130-400); RED BLOOD COUNT 4.54 x10^6/uL (3.82-5.3); RED CELL DISTRIBUTION WIDTH 13.1 % (9.6-15.2)
[2021-05-06 15:56] LABS: ALANINE AMINOTRANSFERASE 34 U/L (12-78); ALBUMIN 2.8 g/dL (3.4-5.0); ANION GAP 6 mmol/L (5-15); CALCIUM 8.3 mg/dL (8.5-10.1); CHLORIDE 108 mmol/L (98-107)
[2021-05-06 15:59] LABS: ALKALINE PHOSPHATASE 113 U/L (45-117); BILIRUBIN,TOTAL 0.6 mg/dL (0.2-1.0); TOTAL PROTEIN 6.9 g/dL (6.4-8.2); TROPONIN I < 0.015 ng/mL (0.000-0.045)
--- NOTE | 2021-05-06 16:07 | NUR ---
PT RESTING IN ROOM. VS STABLE. SALES TRADER ON. CALL LIGHT IN PLACE. WILL CONTINUE TO MONITOR.
--- NOTE | 2021-05-06 16:28 | NUR ---
PT RESTING IN ROOM. VS STABLE. CALL LIGHT IN PLACE. WILL CONTINUE TO MONITOR.
--- NOTE | 2021-05-06 16:57 | NUR ---
DR WEST HAS UPDATED PATIENT. VS STABLE. CALL LIGHT IN PLACE. WILL CONTINUE TO MONITOR.
--- NOTE | 2021-05-06 17:30 | NUR ---
PT RESTING IN ROOM. NO ACUTE DISTRESS NOTED. CALL LIGHT IN PLACE. WILL CONTINUE TO MONITOR.
[2021-05-06 18:13] VITALS: BP 137/78
== END 2021-05-06 18:22 | disposition home or self-care (01) ==
LOC: ED 17:58
DX: R06.00 Dyspnea, unspecified (principal); R05 Cough; I10 Essential (primary) hypertension
CPT/HCPCS: 36415; 71045; 80053; 84484; 85025; 87081; 87880; 93005; 96360; 99285; J7030

== ENCOUNTER 2021-05-09 17:50 | Emergency (ER) | payer MEDICAID ==
[~2021-05-09] VITALS: Ht 185.4 cm; Wt 113.5 kg
[2021-05-09 18:06] VITALS: BP 126/89
[2021-05-09] MEDS ORDERED: KETOROLAC 30 MG/1 ML ONE (19:15)
[2021-05-09] MEDS ORDERED: ACETAMINOPHEN 500 MG TABLET ONE (19:15)
--- NOTE | 2021-05-09 19:22 | NUR ---
pt medicated per mar
--- NOTE | 2021-05-09 19:29 | NUR ---
Patient/Caregiver given discharge instructions and they have confirmed that they understand the instructions. NAD, all questions answered appropriately, denies additional needs at this time. No personal belongings left after discharge.
[2021-05-09] MEDS ORDERED: ACETAMINOPHEN 500 MG TABLET PO ONE (19:30)
[2021-05-09] MEDS ORDERED: KETOROLAC 30 MG/1 ML IM ONE (20:00)
== END 2021-05-09 19:31 | disposition home or self-care (01) ==
LOC: ED 19:27
DX: F15.10 Other stimulant abuse, uncomplicated (principal); R45.851 Suicidal ideations; Z72.9 Problem related to lifestyle, unspecified; F17.210 Nicotine dependence, cigarettes, uncomplicated; I10 Essential (primary) hypertension; Z90.89 Acquired absence of other organs; Z90.710 Acquired absence of both cervix and uterus; Z91.14 Patient's other noncompliance with medication regimen
CPT/HCPCS: 99283; 99406; J1885